=== PATIENT | male | born 1975 | race Two or more races ===

== ENCOUNTER 2017-12-29 22:05 | Emergency (ER) | payer SELFPAY ==
[2017-12-29 22:13] VITALS: BP 122/80
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
== END 2017-12-29 23:15 | disposition home or self-care (01) ==
LOC: ER 22:05
DX: M79.662 Pain in left lower leg (principal); M79.652 Pain in left thigh; R25.2 Cramp and spasm; Z82.49 Family history of ischemic heart disease and other diseases of the circulatory system
CPT/HCPCS: 99283

== ENCOUNTER 2018-02-01 02:20 | Emergency (ER) | payer OTHER ==
[2018-02-01 02:30] VITALS: BP 115/87
[2018-02-01] MEDS ORDERED: IBUPROFEN 400 MG TABLET PO ONE (02:54)
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
--- NOTE | 2018-02-01 03:48 | RADIOLOGY REPORT (SQ) ---
EXAM DESCRIPTION: XR HAND 3 OR MORE VIEWS, XR WRIST 3 OR MORE VIEWS COMPLETED DATE/TME: 02/01/2018 00:00 (accession [id number]), 02/01/2018 02:54 (accession [id number]) CLINICAL HISTORY: 42 years Male, pain COMPARISON: None. Findings: Mild posterior subluxation of the left distal ulna the distal radioulnar joint which may indicate injury/laxity of the distal left radial ulnar ligament. Bones, joints, and soft tissues of the LEFT XR HAND 3 VIEWS, XR WRIST 4 VIEWS appear otherwise intact. IMPRESSION: Mild posterior subluxation of the left distal ulna the distal radioulnar joint which may indicate injury/laxity of the distal left radial ulnar ligament.
--- NOTE | 2018-02-01 03:48 | RADIOLOGY REPORT (SQ) ---
EXAM DESCRIPTION: XR HAND 3 OR MORE VIEWS, XR WRIST 3 OR MORE VIEWS COMPLETED DATE/TME: 02/01/2018 00:00 (accession [id number]), 02/01/2018 02:54 (accession [id number]) CLINICAL HISTORY: 42 years Male, pain COMPARISON: None. Findings: Mild posterior subluxation of the left distal ulna the distal radioulnar joint which may indicate injury/laxity of the distal left radial ulnar ligament. Bones, joints, and soft tissues of the LEFT XR HAND 3 VIEWS, XR WRIST 4 VIEWS appear otherwise intact. IMPRESSION: Mild posterior subluxation of the left distal ulna the distal radioulnar joint which may indicate injury/laxity of the distal left radial ulnar ligament.
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
== END 2018-02-01 04:34 | disposition home or self-care (01) ==
LOC: ER 02:20
DX: S43.422A Sprain of left rotator cuff capsule, initial encounter (principal); S63.502A Unspecified sprain of left wrist, initial encounter; M25.512 Pain in left shoulder; Y09 Assault by unspecified means
CPT/HCPCS: 99284; 73130; 73030; 73110; J3490; L3908

== ENCOUNTER 2018-08-30 13:26 | Inpatient (IN) | payer OTHER ==
[2018-08-30] MEDS ORDERED: RINGERS SOLUTION,LACTATED 1,000 ML IV ONE (14:57)
[2018-08-30] MEDS ORDERED: ONDANSETRON HCL INJ/PF 4 MG/2 ML SDV IV ONE (14:58)
[2018-08-30] MEDS ORDERED: KETOROLAC TROMETHAMINE INJ/PF 30 MG/1 ML SDV IV ONE (14:58)
[2018-08-30 15:17] LABS: ABSOLUTE BASOPHILS # (AUTO) 0.1 10^3/uL (0.0-0.2); ABSOLUTE LYMPHOCYTES (AUTO) 1.4 10^3/uL (0.5-4.7); ABSOLUTE MONOCYTES (AUTO) 0.7 10^3/uL (0.1-1.4); BASOPHILS % (AUTO) 0.4 % (0-2); EOSINOPHILS % (AUTO) 0.1 % (0-6); HEMATOCRIT 49.9 % (37.9-51.0); HEMOGLOBIN 17.3 g/dL (13.5-17.0); LYMPHOCYTES % (AUTO) 10.7 % (13-45); MEAN CORPUSCULAR HGB CONC 34.7 g/dL (32.0-36.0); MEAN CORPUSCULAR VOLUME 89 fl (80-97); MONOCYTES % (AUTO) 5.7 % (3-13); PLATELET COUNT 255 10^3/uL (150-450); RED BLOOD COUNT 5.59 10^6/uL (4.35-5.55); RED CELL DISTRIBUTION WIDTH 12.7 % (11.5-14.0); SEGMENTED NEUTROPHILS % (AUTO) 83.1 % (42-78); TOTAL CELLS COUNTED % (AUTO) 100 %; WHITE BLOOD COUNT 13.2 10^3/uL (4.0-10.5)
[2018-08-30 15:18] LABS: AMORPHOUS SEDIMENT,URINE TRACE /HPF; APPEARANCE,URINE SLIGHTLY-CLOUDY; BILIRUBIN,URINE NEGATIVE (NEGATIVE); COLOR,URINE YELLOW; GLUCOSE, URINE 50 mg/dL (NEGATIVE); KETONES,URINE NEGATIVE (NEGATIVE); LEUKOCYTE ESTERASE,URINE NEGATIVE (NEGATIVE); NITRITE,URINE NEGATIVE (NEGATIVE); PROTEIN,URINE 100 mg/dL (NEGATIVE); URINE SPECIFIC GRAVITY 1.016; UROBILINOGEN,URINE NEGATIVE mg/dL (<2.0)
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
[2018-08-30 16:59] LABS: ALANINE AMINOTRANSFERASE 167 U/L (21-72); ALBUMIN 4.7 g/dL (3.5-5.0); ALKALINE PHOSPHATASE 54 U/L (38-126); ASPARTATE AMINO TRANSFERASE 720 U/L (17-59); BILIRUBIN,DIRECT 0.3 mg/dL (0.0-0.4); BLOOD UREA NITROGEN 51 mg/dL (7-20); CALCIUM 8.9 mg/dL (8.4-10.2); GLUCOSE 85 mg/dL (75-110); POTASSIUM 4.6 mmol/L (3.6-5.0); TOTAL PROTEIN 7.2 g/dL (6.3-8.2)
[2018-08-30 17:04] LABS: CARBON DIOXIDE 21 mmol/L (22-30); CHLORIDE 92 mmol/L (98-107); SODIUM 132.8 mmol/L (137-145)
[2018-08-30 17:07] LABS: ANION GAP 20 (5-19)
[2018-08-30] MEDS: NORMAL SALINE 1000 ML 1,000 ML IV PRN ×2 (17:28→18:30)
[2018-08-30] MEDS ORDERED: ONDANSETRON HCL INJ/PF 4 MG/2 ML SDV IV PRN (17:51)
[2018-08-30] MEDS ORDERED: ACETAMINOPHEN 325 MG TABLET PO PRN (17:51)
[2018-08-30] MEDS ORDERED: RINGERS SOLUTION,LACTATED 1,000 ML IV PRN (17:51)
--- NOTE | 2018-08-30 18:17 | PDOC H&P ---
History of Present Illness Admission Date/PCP: 08/30/2018 Patient complains of: Nausea vomiting and dehydration History of Present Illness: EMILIE CHAVEZ JR is a 43 year old male with history of hernia repair, right shoulder surgery, right bicep repair came to the emergency room with complaints of nausea and vomitings decreased urinary output since yesterday. 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 2 times may be less than 10 cc whole day. After the workout went home try to urinate less than 5 cc of brownish tinge colored urine came out and he tried to eat unable to eat even a small piece of banana and he threw back up decided to came to the emergency room for further evaluation. In the emergency room work-up was done found to have a creatinine of 4.07 given 1 L of normal saline IV bolus and found to have elevated LFTs medical consult was called for admission. Patient denies any past medical history except for the small surgical procedures and denies of naproxyn. denies fever denies chest pains cough headaches diarrhea. Complains of slight pain in the right upper quadrant. Past Medical History Cardiac Medical History: Reports: None Pulmonary Medical History: Reports: None Neurological Medical History: Reports: None Endocrine Medical History: Reports: None Malignancy Medical History: Reports: None GI Medical History: Reports: None Musculoskeltal Medical History: Reports: Other - Right shoulder repair right bicep repair Psychiatric Medical History: Reports: None Traumatic Medical History: Reports: None Past Surgical History Past Surgical History: Reports: Orthopedic Surgery - R shoulder/r bicep Social History Information Source: Patient Lives with: Family Smoking Status: Never Smoker Frequency of Alcohol Use: Occasional Hx Recreational Drug Use: No Drugs: None - Advance Directive Resuscitation Status: Full Code Family History Family History: Reviewed & Not Pertinent Parental Family History Reviewed: Yes Children Family History Reviewed: Yes Sibling(s) Family History Reviewed.: Yes Medication/Allergy Home Medications: Cyclobenzaprine HCl [Flexeril 10 mg Tablet] 10 mg PO QHS 08/30/18 Naproxen [Naprosyn] 500 mg PO QHS 08/30/18 Allergies/Adverse Reactions: No Known Allergies Allergy (Verified 08/30/18 17:58) Review of Systems Constitutional: PRESENT: fatigue, weakness. ABSENT: fever(s), headache(s) Eyes: ABSENT: visual disturbances Ears: ABSENT: hearing changes Nose, Mouth, and Throat: ABSENT: sore throat Respiratory: ABSENT: dyspnea, hemoptysis Gastrointestinal: PRESENT: abdominal pain, nausea, vomiting. ABSENT: diarrhea, dysphagia Genitourinary: PRESENT: difficulty urinating Integumentary: ABSENT: rash, wounds Neurological: ABSENT: abnormal gait, abnormal speech, confusion, dizziness, focal weakness, syncope Psychiatric: ABSENT: anxiety, depression, homidical ideation, suicidal ideation Physical Exam Vital Signs: Temp Pulse Resp BP Pulse Ox 98.1 F 61 16 134/79 H 98 08/30/18 13:27 08/30/18 13:27 08/30/18 13:27 08/30/18 13:27 08/30/18 13:27 Intake & Output 08/29/18 08/30/18 08/31/18 06:59 06:59 06:59 Weight 86.183 kg General appearance: PRESENT: no acute distress Head exam: PRESENT: atraumatic Eye exam: PRESENT: PERRLA Mouth exam: PRESENT: dry mucosa, tongue midline Neck exam: ABSENT: carotid bruit, JVD, lymphadenopathy, thyromegaly Respiratory exam: PRESENT: clear to auscultation boy. ABSENT: rales, rhonchi, wheezes Cardiovascular exam: PRESENT: RRR. ABSENT: diastolic murmur, rubs, systolic murmur GI/Abdominal exam: PRESENT: normal bowel sounds, soft. ABSENT: distended, guarding, mass, organolmegaly, rebound, tenderness Rectal exam: PRESENT: deferred Extremities exam: PRESENT: full ROM. ABSENT: calf tenderness, clubbing, pedal edema Psychiatric exam: PRESENT: appropriate affect, normal mood. ABSENT: homicidal ideation, suicidal ideation Skin exam: PRESENT: dry, intact, warm. ABSENT: cyanosis, rash Results Laboratory Results: 08/30/18 14:50 08/30/18 16:18 08/30/18 08/30/18 08/30/18 14:50 14:50 14:50 WBC 13.2 H RBC 5.59 H Hgb 17.3 H Hct 49.9 MCV 89 MCH 31.0 MCHC 34.7 RDW 12.7 Plt Count 255 Seg Neutrophils % 83.1 H Lymphocytes % 10.7 L Monocytes % 5.7 Eosinophils % 0.1 Basophils % 0.4 Absolute Neutrophils 11.0 H Absolute Lymphocytes 1.4 Absolute Monocytes 0.7 Absolute Eosinophils 0.0 Absolute Basophils 0.1 Sodium Cancelled Potassium Cancelled Chloride Cancelled Carbon Dioxide Cancelled Anion Gap Cancelled BUN Cancelled Creatinine Cancelled Est GFR ( Amer) Cancelled Est GFR (Non-Af Amer) Cancelled Glucose Cancelled Calcium Cancelled Total Bilirubin Cancelled AST Cancelled ALT Cancelled Alkaline Phosphatase Cancelled Total Protein Cancelled Albumin Cancelled Urine Color YELLOW Urine Appearance SLIGHTLY-CLOUDY Urine pH 5.0 Ur Specific [employer] 1.016 Urine Protein 100 H Urine Glucose (UA) 50 H Urine Ketones NEGATIVE Urine Blood LARGE H Urine Nitrite NEGATIVE Ur Leukocyte Esterase NEGATIVE Urine WBC (Auto) 6 Urine RBC (Auto) 22 08/30/18 08/30/18 16:18 16:18 WBC RBC Hgb Hct MCV MCH MCHC RDW Plt Count Seg Neutrophils % Lymphocytes % Monocytes % Eosinophils % Basophils % Absolute Neutrophils Absolute Lymphocytes Absolute Monocytes Absolute Eosinophils Absolute Basophils Sodium 132.8 L Cancelled Potassium 4.6 Cancelled Chloride 92 L Cancelled Carbon Dioxide 21 L Cancelled Anion Gap 20 H Cancelled BUN 51 H Cancelled Creatinine 4.09 H Cancelled Est GFR ( Amer) 19 L Cancelled Est GFR (Non-Af Amer) 16 L Cancelled Glucose 85 Cancelled Calcium 8.9 Cancelled Total Bilirubin 1.0 AST 720 H ALT 167 H Alkaline Phosphatase 54 Total Protein 7.2 Albumin 4.7 Urine Color Urine Appearance Urine pH Ur Specific [employer] Urine Protein Urine Glucose (UA) Urine Ketones Urine Blood Urine Nitrite Ur Leukocyte Esterase Urine WBC (Auto) Urine RBC (Auto) Assessment and Plan - Diagnosis (1) ANGEL (acute kidney injury) Is this a current diagnosis for this admission?: Yes Plan: 08/30/2018-patient is going to be admitted with a diagnosis of acute kidney injury. He is going to be admitted to telemetry. He received 2 L of IV fluids in the emergency room to start on a Ringer lactate at 150 cc/h. Nephrology consult was requested. GI prophylaxis DVT prophylaxis initiated. To recheck the labs tomorrow. CK is pending. Elevated LFTs are present at the time of admission ultrasound of the liver was requested. Start on a regular diet. (2) Elevated liver enzymes Is this a current diagnosis for this admission?: Yes Plan: 08/30/2018 elevated liver enzymes AST ALT may be secondary to severe dehydration. Plan to repeat the labs tomorrow and ultrasound of the liver was requested. Total bilirubin and direct bilirubin are normal. (3) Nausea & vomiting Qualifiers: Vomiting type: unspecified Vomiting Intractability: non-intractable Qualified Code(s): R11.2 - Nausea with vomiting, unspecified Is this a current diagnosis for this admission?: Yes Plan: 08/30/2018-patient came to the ER with nausea vomiting's though symptoms are resolved. He is able to drink miriam eduardo and denies any abdominal pains except for a slight discomfort in the right upper quadrant on gentle palpation. I did an IV Zofran 4 mg every 6 PRN for nausea and vomiting's. (4) Dehydration Is this a current diagnosis for this admission?: Yes Plan: 08/30/2018-patient is severely deviated and treated most likely secondary to his externus exercise in the extreme heat yesterday. Received 2 L of normal saline in the emergency room started on Ringer lactate 150 cc/h plan to recheck the labs tomorrow. - Time Time Spent with patient: 15-24 minutes Medications reviewed and adjusted accordingly: Yes Anticipated discharge: Home
[2018-08-30 18:43] LABS: CREATINE KINASE 94975 U/L (55-170)
[2018-08-30] MEDS ORDERED: ENOXAPARIN SODIUM INJ 40 MG/0.4 ML DISP.SYRIN SUBCUT SCH (19:00)
[2018-08-30 19:28] LABS: CREATINE KINASE MB 24.4 ng/mL (<4.55)
[2018-08-30 19:32] LABS: TROPONIN I 0.048 ng/mL
--- NOTE | 2018-08-30 21:10 | RADIOLOGY REPORT (SQ) ---
EXAM DESCRIPTION: US ABDOMEN COMPLETED DATE/TME: 08/30/2018 00:00 CLINICAL HISTORY: 43 years, Male, elevated lfts COMPARISON: None. TECHNIQUE: 2-D grayscale images of the abdomen were obtained. Additional Doppler was utilized. LIMITATIONS: None. FINDINGS: The pancreas is largely obscured by overlying bowel gas artifact. Visualized portions of the abdominal aorta appear normal, with measurements as follows: Proximal abdominal aorta measures 2.1 cm Mid abdominal aorta measures 1.7 cm Distal abdominal aorta measures 1.9 cm The liver demonstrates accentuation of the portal triads (starry skylar appearance). It measures 15 cm in length. The hepatic veins are patent. Antegrade flow is documented within the main portal vein. Gallbladder wall thickness measures 2 mm. Sonographic Lopez sign was negative. No gallstones. No significant intrahepatic biliary ductal dilatation is evident. Common bile duct diameter measures 3 mm. Right kidney measures 10.4 cm in length. It appears somewhat echogenic. Left kidney measures 12.8 cm in length. It appears normal in echogenicity. No hydronephrosis. Spleen measures 9.1 cm in length. IMPRESSION: Accentuation the portal triads throughout the liver parenchyma, raising the possibility of acute hepatitis. However, the liver does not appear significantly enlarged. Correlate. Echogenic right kidney, raising the possibility of medical renal disease. copyright 2010 [employer]- All Rights Reserved
[2018-08-30] MEDS: FAMOTIDINE 20 MG TABLET PO SCH (23:02)
[2018-08-30] MEDS: CYCLOBENZAPRINE HCL 10 MG TABLET PO SCH (23:02)
[2018-08-31 01:53] LABS: CREATINE KINASE MB 20.4 ng/mL (<4.55); TROPONIN I 0.036 ng/mL
[2018-08-31 07:33] LABS: ABSOLUTE MONOCYTES (AUTO) 0.6 10^3/uL (0.1-1.4); BASOPHILS % (AUTO) 0.2 % (0-2); EOSINOPHILS % (AUTO) 0.2 % (0-6); HEMATOCRIT 40.5 % (37.9-51.0); MEAN CORPUSCULAR HEMOGLOBIN 31.3 pg (27.0-33.4); MEAN CORPUSCULAR HGB CONC 35.4 g/dL (32.0-36.0); MEAN CORPUSCULAR VOLUME 89 fl (80-97); MONOCYTES % (AUTO) 7.4 % (3-13); PLATELET COUNT 160 10^3/uL (150-450); RED BLOOD COUNT 4.58 10^6/uL (4.35-5.55); RED CELL DISTRIBUTION WIDTH 12.6 % (11.5-14.0); SEGMENTED NEUTROPHILS % (AUTO) 79.2 % (42-78); TOTAL CELLS COUNTED % (AUTO) 100 %; WHITE BLOOD COUNT 7.6 10^3/uL (4.0-10.5)
[2018-08-31 07:45] LABS: ALANINE AMINOTRANSFERASE 184 U/L (21-72); ALBUMIN 3.6 g/dL (3.5-5.0); ALKALINE PHOSPHATASE 43 U/L (38-126); ANION GAP 14 (5-19); ASPARTATE AMINO TRANSFERASE 662 U/L (17-59); BILIRUBIN,DIRECT 0.3 mg/dL (0.0-0.4); BILIRUBIN,TOTAL 0.9 mg/dL (0.2-1.3); BLOOD UREA NITROGEN 65 mg/dL (7-20); CALCIUM 8.1 mg/dL (8.4-10.2); CARBON DIOXIDE 21 mmol/L (22-30); CHLORIDE 99 mmol/L (98-107); CHOLESTEROL 196.93 mg/dL (0-200); GLUCOSE 101 mg/dL (75-110); POTASSIUM 4.1 mmol/L (3.6-5.0); SODIUM 133.6 mmol/L (137-145); TOTAL PROTEIN 5.8 g/dL (6.3-8.2); TRIGLYCERIDES 150 mg/dL (<150)
--- NOTE | 2018-08-31 07:49 | EKG REPORT ---
SEVERITY:- BORDERLINE ECG - SINUS RHYTHM BORDERLINE PROLONGED QT INTERVAL : Confirmed by: Edgar Sanford MD 31-Aug-2018 07:49:02
--- NOTE | 2018-08-31 07:49 | EKG REPORT ---
SEVERITY:- ABNORMAL ECG - SINUS RHYTHM PROLONGED QT INTERVAL : Confirmed by: Edgar Sanford MD 31-Aug-2018 07:49:15
[2018-08-31 07:56] LABS: CREATINE KINASE MB 16.7 ng/mL (<4.55); DIRECT LDL 123 mg/dL (<100); TROPONIN I 0.026 ng/mL
[2018-08-31 08:42] LABS: CREATINE KINASE 78033 U/L (55-170)
[2018-08-31 08:44] LABS: HEMOGLOBIN 14.3 g/dL (13.5-17.0)
[2018-08-31] MEDS: NORMAL SALINE 1000 ML 1,000 ML IV PRN ×2 (10:45→16:36)
[2018-08-31] MEDS: ENOXAPARIN SODIUM INJ 30 MG/0.3 ML DISP.SYRIN SUBCUT SCH (10:46)
[2018-08-31] MEDS: FAMOTIDINE 20 MG TABLET PO SCH ×2 (10:46→23:52)
[2018-08-31] MEDS: ACETAMINOPHEN 325 MG TABLET PO PRN ×2 (12:38→23:51)
[2018-08-31] MEDS ORDERED: MORPHINE SULFATE 10 MG/ML INJ IV PRN (19:31)
--- NOTE | 2018-08-31 19:33 | PDOC PROGRESS REPORT ---
Subjective Progress Note for:: 08/31/18 Subjective:: EMILIE CHAVEZ JR is a 43 year old male with history of hernia repair, right shoulder surgery, right bicep repair came to the emergency room with complaints of nausea and vomitings decreased urinary output since yesterday. 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 2 times may be less than 10 cc whole day. After the workout went home try to urinate less than 5 cc of brownish tinge colored urine came out and he tried to eat unable to eat even a small piece of banana and he threw back up decided to came to the emergency room for further evaluation. In the emergency room work-up was done found to have a creatinine of 4.07 given 1 L of normal saline IV bolus and found to have elevated LFTs medical consult was called for admission. Patient denies any past medical history except for the small surgical procedures and denies of naproxyn. denies fever denies chest pains cough headaches diarrhea. Complains of slight pain in the right upper quadrant. 08/31/2018. Assumed care today. Patient complaining of mild nausea, generalized weakness and muscle soreness, eyes any fever, chills, vomiting, diarrhea, constipation or any urinary symptoms. Reason For Visit: ACUTE RENAL FAILURE Physical Exam Vital Signs: Temp Pulse Resp BP Pulse Ox 98.2 F 45 L 16 120/78 98 08/31/18 16:00 08/31/18 16:00 08/31/18 16:00 08/31/18 16:00 08/31/18 16:00 Intake & Output 08/30/18 08/31/18 09/01/18 06:59 06:59 06:59 Intake Total 3042 2508 Output Total 550 Balance 3042 1958 Weight 88.4 kg General appearance: PRESENT: no acute distress, well-developed, well-nourished Head exam: PRESENT: atraumatic, normocephalic Eye exam: PRESENT: conjunctiva pink, EOMI, PERRLA. ABSENT: scleral icterus Ear exam: PRESENT: normal external ear exam Mouth exam: PRESENT: moist, tongue midline Neck exam: ABSENT: carotid bruit, JVD, lymphadenopathy, thyromegaly Respiratory exam: PRESENT: clear to auscultation boy. ABSENT: rales, rhonchi, wheezes Cardiovascular exam: PRESENT: RRR. ABSENT: diastolic murmur, rubs, systolic murmur Pulses: PRESENT: normal dorsalis pedis pul Vascular exam: PRESENT: normal capillary refill GI/Abdominal exam: PRESENT: normal bowel sounds, soft. ABSENT: distended, guarding, mass, organolmegaly, rebound, tenderness Rectal exam: PRESENT: deferred Extremities exam: PRESENT: full ROM. ABSENT: calf tenderness, clubbing, pedal edema Musculoskeletal exam: PRESENT: tenderness - Generalized musculoskeletal tenderness. Neurological exam: PRESENT: alert, awake, oriented to person, oriented to place, oriented to time, oriented to situation, CN II-XII grossly intact. ABSENT: motor sensory deficit Psychiatric exam: PRESENT: appropriate affect, normal mood. ABSENT: homicidal ideation, suicidal ideation Skin exam: PRESENT: dry, intact, warm. ABSENT: cyanosis, rash Results Laboratory Results: 08/31/18 07:05 08/31/18 07:05 08/31/18 08/31/18 08/31/18 07:05 07:05 07:05 WBC 7.6 RBC 4.58 Hgb 14.3 D Hct 40.5 MCV 89 MCH 31.3 MCHC 35.4 RDW 12.6 Plt Count 160 Seg Neutrophils % 79.2 H Lymphocytes % 13.0 Monocytes % 7.4 Eosinophils % 0.2 Basophils % 0.2 Absolute Neutrophils 6.0 Absolute Lymphocytes 1.0 Absolute Monocytes 0.6 Absolute Eosinophils 0.0 Absolute Basophils 0.0 Sodium 133.6 L Potassium 4.1 Chloride 99 Carbon Dioxide 21 L Anion Gap 14 BUN 65 H Creatinine 5.53 H Est GFR ( Amer) 14 L Est GFR (Non-Af Amer) 11 L Glucose 101 Calcium 8.1 L Magnesium 3.7 H Total Bilirubin 0.9 AST 662 H ALT 184 H Alkaline Phosphatase 43 Total Protein 5.8 L Albumin 3.6 Triglycerides 150 Cholesterol 196.93 LDL Cholesterol Direct 123 H VLDL Cholesterol 30.0 HDL Cholesterol 45 TSH 1.40 08/30/18 08/30/18 08/30/18 16:18 18:30 18:30 Creatine Kinase 32700 H 560960 H CK-MB (CK-2) 24.40 H Troponin I 0.048 08/31/18 08/31/18 08/31/18 01:03 01:03 07:05 Creatine Kinase 44673 H 53261 H CK-MB (CK-2) 20.40 H Troponin I 0.036 08/31/18 07:05 Creatine Kinase CK-MB (CK-2) 16.70 H Troponin I 0.026 Impressions: Abdomen Ultrasound 08/30/18 00:00 IMPRESSION: Accentuation the portal triads throughout the liver parenchyma, raising the possibility of acute hepatitis. However, the liver does not appear significantly enlarged. Correlate. Echogenic right kidney, raising the possibility of medical renal disease. copyright 2010 [employer]- All Rights Reserved Assessment and Plan - Diagnosis (1) Rhabdomyolysis Qualifiers: Rhabdomyolysis type: non-traumatic Qualified Code(s): M62.82 - Rhabdomyolysis Is this a current diagnosis for this admission?: Yes Plan: Due to intense workout session at work. Stating that he had a continuous 12- hour intense workout session at work part of his training at [employer]. CK trending down from [id number] on admission. Continue IV fluids guided by volume status and vitals. Strict in and out. (2) ANGEL (acute kidney injury) Is this a current diagnosis for this admission?: Yes Plan: Nonoliguric. Worsening kidney function. No sign of volume overload. Denies any uremic symptoms except for mild nausea. 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 Continue IV fluids. Monitor volume status, electrolytes, and vitals. Continue prerenal diet. Nephrology on board. (3) Dehydration Is this a current diagnosis for this admission?: Yes Plan: Continue volume resuscitation guided by volume status and vitals. (4) Elevated liver enzymes Is this a current diagnosis for this admission?: Yes Plan: Improving. Likely due to rhabdomyolysis patient denies any history of alcohol intake, history of alcoholic hepatitis. 09/01/2018: LFTs trending down. Bilirubin and alk phos within normal limits. 08/30/2018. Abdominal ultrasound. Accentuation of the portal triads throughout the liver parenchyma, raising the possibility of acute hepatitis. However the liver does not appear significantly enlarged. LFTs for tomorrow. Will consider hepatitis work-up if does not improve. (5) Nausea & vomiting Qualifiers: Vomiting type: unspecified Vomiting Intractability: non-intractable Qualified Code(s): R11.2 - Nausea with vomiting, unspecified Is this a current diagnosis for this admission?: Yes Plan: Due to #1. Continue supportive measures. Monitor electrolytes and volume status.
--- NOTE | 2018-08-31 20:36 | PDOC CONSULTATION ---
Consultation Consult Date: 08/31/18 Provider Consulted: TANA GARG Consult reason:: ANGEL History of Present Illness Admission Date/PCP: 08/30/18 18:17 History of Present Illness: EMILIE CHAVEZ JR is a 43 year old male with history of hernia repair, right shoulder surgery, right bicep repair came to the emergency room with complaints of nausea and vomitings, decreased urinary output and brown colored urine since yesterday. 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 He was sweating a significant amount. He claims to have been drinking water and diluted Gatorade through out the day. He noticed later that night he had decreased urine out put, his body was becoming sore all over and his urine became brown. At that time he felt that he should go to the ER. In the ER labs creatinine of 4.07, BUN was elevated and CPK was over 95,000. He was given 1 L of normal saline IV bolus. Since admission he has been on normal saline at 200mL an hour. Urine output has increased and the color of the urine has improved. Ultrasound just showed the possiblity of acute hepatitis. Patient today claims that the only complaint is that he is still sore. He denies chest pain, SOB, D/C. Nausea and vomiting has just about gone away. Urine out put so far is up to 550mL for the day. Past Medical History Cardiac Medical History: Reports: None Pulmonary Medical History: Reports: None Neurological Medical History: Reports: None Endocrine Medical History: Reports: None Complications of Diabetes: Reports: None Malignancy Medical History: Reports: None GI Medical History: Reports: None Musculoskeltal Medical History: Reports: Other - Right shoulder repair right bicep repair Psychiatric Medical History: Reports: None Traumatic Medical History: Reports: None Past Surgical History Past Surgical History: Reports: Orthopedic Surgery - R shoulder/r bicep Social History Lives with: Family Smoking Status: Never Smoker Frequency of Alcohol Use: Occasional Hx Recreational Drug Use: No Drugs: None - Advance Directive Resuscitation Status: Full Code Family History Parental Family History Reviewed: Yes Children Family History Reviewed: Unknown Sibling(s) Family History Reviewed.: Unknown Medication/Allergy Home Medications: Cyclobenzaprine HCl [Flexeril 10 mg Tablet] 10 mg PO QHS 08/30/18 Naproxen [Naprosyn] 500 mg PO QHS 08/30/18 Allergies/Adverse Reactions: No Known Allergies Allergy (Verified 08/30/18 17:58) Review of Systems Constitutional: PRESENT: fatigue, weakness. ABSENT: anorexia, chills, fever(s) Eyes: ABSENT: visual disturbances Cardiovascular: ABSENT: chest pain, dyspnea on exertion, edema, orthropnea, pal pitations Respiratory: ABSENT: cough, dyspnea, sputum Gastrointestinal: PRESENT: abdominal pain - -soreness, nausea. ABSENT: constipation, diarrhea, vomiting Genitourinary: PRESENT: difficulty urinating - -when he first came in. ABSENT: dysuria Musculoskeletal: PRESENT: muscle weakness. ABSENT: joint swelling Neurological: PRESENT: weakness. ABSENT: confusion, dizziness, numbness Psychiatric: ABSENT: anxiety, depression Physical Exam Vital Signs: Temp Pulse Resp BP Pulse Ox 97.9 F 47 L 16 107/56 L 99 08/31/18 08:01 08/31/18 14:00 08/31/18 08:01 08/31/18 08:01 08/31/18 08:01 Intake & Output 08/30/18 08/31/18 09/01/18 06:59 06:59 06:59 Intake Total 3042 958 Balance 3042 958 Weight 88.4 kg General appearance: PRESENT: no acute distress, well-developed, well-nourished Mouth exam: PRESENT: dry mucosa, neck supple Neck exam: ABSENT: JVD, tracheal deviation Respiratory exam: PRESENT: clear to auscultation boy. ABSENT: crackles, rales, rhonchi, wheezes Cardiovascular exam: PRESENT: +S1, +S2. ABSENT: RRR GI/Abdominal exam: PRESENT: soft, tenderness - -sore. ABSENT: ascites, d istended, guarding, mass Extremities exam: PRESENT: tenderness. ABSENT: +1 edema, +2 edema Musculoskeletal exam: PRESENT: normal inspection, tenderness Neurological exam: PRESENT: alert, awake, oriented to person, oriented to place, oriented to time, oriented to situation Skin exam: PRESENT: dry, intact, warm, other - -bruises on the legs Results Laboratory Results: 08/31/18 07:05 08/31/18 07:05 08/30/18 08/30/18 08/31/18 16:18 16:18 07:05 WBC 7.6 RBC 4.58 Hgb 14.3 D Hct 40.5 MCV 89 MCH 31.3 MCHC 35.4 RDW 12.6 Plt Count 160 Seg Neutrophils % 79.2 H Lymphocytes % 13.0 Monocytes % 7.4 Eosinophils % 0.2 Basophils % 0.2 Absolute Neutrophils 6.0 Absolute Lymphocytes 1.0 Absolute Monocytes 0.6 Absolute Eosinophils 0.0 Absolute Basophils 0.0 Sodium 132.8 L Cancelled Potassium 4.6 Cancelled Chloride 92 L Cancelled Carbon Dioxide 21 L Cancelled Anion Gap 20 H Cancelled BUN 51 H Cancelled Creatinine 4.09 H Cancelled Est GFR ( Amer) 19 L Cancelled Est GFR (Non-Af Amer) 16 L Cancelled Glucose 85 Cancelled Calcium 8.9 Cancelled Magnesium Total Bilirubin 1.0 AST 720 H ALT 167 H Alkaline Phosphatase 54 Total Protein 7.2 Albumin 4.7 Triglycerides Cholesterol LDL Cholesterol Direct VLDL Cholesterol HDL Cholesterol TSH 08/31/18 08/31/18 07:05 07:05 WBC RBC Hgb Hct MCV MCH MCHC RDW Plt Count Seg Neutrophils % Lymphocytes % Monocytes % Eosinophils % Basophils % Absolute Neutrophils Absolute Lymphocytes Absolute Monocytes Absolute Eosinophils Absolute Basophils Sodium 133.6 L Potassium 4.1 Chloride 99 Carbon Dioxide 21 L Anion Gap 14 BUN 65 H Creatinine 5.53 H Est GFR ( Amer) 14 L Est GFR (Non-Af Amer) 11 L Glucose 101 Calcium 8.1 L Magnesium 3.7 H Total Bilirubin 0.9 AST 662 H ALT 184 H Alkaline Phosphatase 43 Total Protein 5.8 L Albumin 3.6 Triglycerides 150 Cholesterol 196.93 LDL Cholesterol Direct 123 H VLDL Cholesterol 30.0 HDL Cholesterol 45 TSH 1.40 08/30/18 08/30/18 08/30/18 16:18 18:30 18:30 Creatine Kinase 45746 H 036444 H CK-MB (CK-2) 24.40 H Troponin I 0.048 08/31/18 08/31/18 08/31/18 01:03 01:03 07:05 Creatine Kinase 12649 H 10844 H CK-MB (CK-2) 20.40 H Troponin I 0.036 08/31/18 07:05 Creatine Kinase CK-MB (CK-2) 16.70 H Troponin I 0.026 Impressions: Abdomen Ultrasound 08/30/18 00:00 IMPRESSION: Accentuation the portal triads throughout the liver parenchyma, raising the possibility of acute hepatitis. However, the liver does not appear significantly enlarged. Correlate. Echogenic right kidney, raising the possibility of medical renal disease. copyright 2010 [employer]- All Rights Reserved Assessment & Plan - Diagnosis (1) ANGEL (acute kidney injury) Is this a current diagnosis for this admission?: Yes Plan: nonoliguric, looks to be due to rhabdomyolysis and dehydration. Continue NS at 200mL per an hour. Strict Is and Os. No current indication for [employer]. Will look to recheck the BMP this afternoon. (2) Rhabdomyolysis Qualifiers: Rhabdomyolysis type: non-traumatic Qualified Code(s): M62.82 - Rhabdomyolysis Is this a current diagnosis for this admission?: Yes Plan: Continue on normal saline at 200mL per a hour. Close monitoring of labs, Is and Os (3) Hypocalcemia Plan: will look to start calcium supplemnt (4) Dehydration Is this a current diagnosis for this admission?: Yes Plan: continue normal saline at 200mL per an hour (5) Elevated liver enzymes Is this a current diagnosis for this admission?: Yes Plan: Likely due to dehydration, continue to monitor as he is rehydrated (6) Nausea & vomiting Qualifiers: Vomiting type: unspecified Vomiting Intractability: non-intractable Qualified Code(s): R11.2 - Nausea with vomiting, unspecified Is this a current diagnosis for this admission?: Yes Plan: looks to have almost resolved
[2018-08-31 21:48] LABS: ANION GAP 13 (5-19); BLOOD UREA NITROGEN 68 mg/dL (7-20); CALCIUM 7.8 mg/dL (8.4-10.2); CARBON DIOXIDE 22 mmol/L (22-30); CHLORIDE 100 mmol/L (98-107); GLUCOSE 95 mg/dL (75-110); POTASSIUM 3.8 mmol/L (3.6-5.0); SODIUM 134.6 mmol/L (137-145)
[2018-08-31] MEDS: TRAZODONE HCL 50 MG TABLET PO PRN (23:51)
[2018-08-31] MEDS: CYCLOBENZAPRINE HCL 10 MG TABLET PO SCH (23:52)
[2018-09-01] MEDS: CALCIUM CARBONATE 500 MG TABLET PO SCH ×2 (03:04→10:15)
[2018-09-01 05:52] LABS: ABSOLUTE LYMPHOCYTES (AUTO) 0.9 10^3/uL (0.5-4.7); ABSOLUTE MONOCYTES (AUTO) 0.5 10^3/uL (0.1-1.4); ABSOLUTE NEUT (AUTO) 4.1 10^3/uL (1.7-8.2); BASOPHILS % (AUTO) 0.4 % (0-2); EOSINOPHILS % (AUTO) 0.4 % (0-6); HEMATOCRIT 36.4 % (37.9-51.0); HEMOGLOBIN 12.7 g/dL (13.5-17.0); LYMPHOCYTES % (AUTO) 16.1 % (13-45); MEAN CORPUSCULAR HEMOGLOBIN 31.1 pg (27.0-33.4); MEAN CORPUSCULAR VOLUME 89 fl (80-97); MONOCYTES % (AUTO) 8.7 % (3-13); PLATELET COUNT 117 10^3/uL (150-450); RED BLOOD COUNT 4.09 10^6/uL (4.35-5.55); RED CELL DISTRIBUTION WIDTH 12.8 % (11.5-14.0); SEGMENTED NEUTROPHILS % (AUTO) 74.4 % (42-78); TOTAL CELLS COUNTED % (AUTO) 100 %; WHITE BLOOD COUNT 5.5 10^3/uL (4.0-10.5)
[2018-09-01 06:14] LABS: ALANINE AMINOTRANSFERASE 176 U/L (21-72); ALBUMIN 3.1 g/dL (3.5-5.0); ALKALINE PHOSPHATASE 37 U/L (38-126); ANION GAP 15 (5-19); ASPARTATE AMINO TRANSFERASE 432 U/L (17-59); BILIRUBIN,DIRECT 0.5 mg/dL (0.0-0.4); BILIRUBIN,TOTAL 0.8 mg/dL (0.2-1.3); BLOOD UREA NITROGEN 67 mg/dL (7-20); CALCIUM 7.6 mg/dL (8.4-10.2); CARBON DIOXIDE 18 mmol/L (22-30); CHLORIDE 101 mmol/L (98-107); GLUCOSE 89 mg/dL (75-110); POTASSIUM 3.9 mmol/L (3.6-5.0); SODIUM 133.5 mmol/L (137-145); TOTAL PROTEIN 5.3 g/dL (6.3-8.2)
[2018-09-01 07:29] LABS: CREATINE KINASE 43798 U/L (55-170)
[2018-09-01] MEDS: ENOXAPARIN SODIUM INJ 30 MG/0.3 ML DISP.SYRIN SUBCUT SCH (10:04)
[2018-09-01] MEDS: FAMOTIDINE 20 MG TABLET PO SCH ×2 (10:04→21:52)
--- NOTE | 2018-09-01 12:00 | PDOC PROGRESS REPORT ---
Subjective Progress Note for:: 09/01/18 Subjective:: Patient continues to be sore on his muscles. He has some mild nausea and complains of some lower back pain. His urine color is now light yellow. He is drinking fluids orally but does not have much appetite and has been eating well. He continues to be on IV fluids and so far since about 3 PM yesterday he made about 1550 mL of urine. Reason For Visit: ACUTE RENAL FAILURE Physical Exam Vital Signs: Temp Pulse Resp BP Pulse Ox 98.5 F 50 L 16 131/73 H 100 09/01/18 07:49 09/01/18 07:49 09/01/18 07:49 09/01/18 07:49 09/01/18 07:49 Intake & Output 08/31/18 09/01/18 09/02/18 06:59 06:59 06:59 Intake Total 3042 4218 Output Total 550 Balance 3042 3668 Weight 88.4 kg 92.9 kg Exam: General appearance: PRESENT: no acute distress, cooperative, well-developed, well-nourished Head exam: PRESENT: atraumatic, normocephalic Eye exam: PRESENT: conjunctiva pink, PERRLA. ABSENT: scleral icterus Neck exam: ABSENT: JVD Respiratory exam: PRESENT: Normal breath sounds. ABSENT: crackles, rales, rhonchi, unlabored, wheezes Cardiovascular exam: PRESENT: Regular rate rhythm -+S1, +S2. ABSENT: diastolic murmur, systolic murmur GI/Abdominal exam: PRESENT: normal bowel sounds, soft. ABSENT: guarding, mass, tenderness Extremities exam: ABSENT: No edema Neurological exam: PRESENT: alert, awake, oriented to person, place and time. Skin exam: PRESENT: dry, warm, Cardiovascular exam: PRESENT: +S1, +S2. ABSENT: RRR GI/Abdominal exam: PRESENT: soft, tenderness - -sore. ABSENT: ascites, distended, guarding, mass Results Laboratory Results: 09/01/18 04:21 09/01/18 04:21 08/31/18 09/01/18 09/01/18 21:13 04:21 04:21 WBC 5.5 RBC 4.09 L Hgb 12.7 L Hct 36.4 L MCV 89 MCH 31.1 MCHC 35.0 RDW 12.8 Plt Count 117 L Seg Neutrophils % 74.4 Lymphocytes % 16.1 Monocytes % 8.7 Eosinophils % 0.4 Basophils % 0.4 Absolute Neutrophils 4.1 Absolute Lymphocytes 0.9 Absolute Monocytes 0.5 Absolute Eosinophils 0.0 Absolute Basophils 0.0 Sodium 134.6 L 133.5 L Potassium 3.8 3.9 Chloride 100 101 Carbon Dioxide 22 18 L Anion Gap 13 15 BUN 68 H 67 H Creatinine 6.80 H 7.53 H Est GFR ( Amer) 11 L 10 L Est GFR (Non-Af Amer) 9 L 8 L Glucose 95 89 Calcium 7.8 L 7.6 L Magnesium 3.3 H Total Bilirubin 0.8 AST 432 H ALT 176 H Alkaline Phosphatase 37 L Total Protein 5.3 L Albumin 3.1 L 08/30/18 08/30/18 08/30/18 16:18 18:30 18:30 Creatine Kinase 53743 H 440846 H CK-MB (CK-2) 24.40 H Troponin I 0.048 08/31/18 08/31/18 08/31/18 01:03 01:03 07:05 Creatine Kinase 24818 H 09580 H CK-MB (CK-2) 20.40 H Troponin I 0.036 08/31/18 09/01/18 07:05 04:21 Creatine Kinase 59880 H CK-MB (CK-2) 16.70 H Troponin I 0.026 Impressions: Abdomen Ultrasound 08/30/18 00:00 IMPRESSION: Accentuation the portal triads throughout the liver parenchyma, raising the possibility of acute hepatitis. However, the liver does not appear significantly enlarged. Correlate. Echogenic right kidney, raising the possibility of medical renal disease. 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 Patient is nonoliguric. However patient's kidney function is still getting worse and not better. I spoke to the patient today that if his kidney function continues to get worse we might need to do acute renal replacement therapy to help for solute clearance. Discussed the procedure risks and benefits of renal replacement ther apy with the patient. Patient indicated that he would agree to proceed if necessary. So I am going to repeat his kidney function sometime this evening and determine if he would need any renal replacement therapy tomorrow. Currently the he does not have any symptoms of fluid overload nor overt uremia. (2) Rhabdomyolysis Qualifiers: Rhabdomyolysis type: non-traumatic Qualified Code(s): M62.82 - Rhabdomyolysis Is this a current diagnosis for this admission?: Yes Plan: CPK is progressively decreasing with IV fluid hydration. Continue the same. (3) Dehydration Is this a current diagnosis for this admission?: Yes Plan: Continue IV fluid hydration. (4) Elevated liver enzymes Is this a current diagnosis for this admission?: Yes Plan: Ultrasound revealed possibility of acute hepatitis. Defer to hospitalist. (5) Hypocalcemia Is this a current diagnosis for this admission?: Yes Plan: Corrected calcium today is 8.32 which is normal. May continue calcium sup plements. (6) Nausea & vomiting Qualifiers: Vomiting type: unspecified Vomiting Intractability: non-intractable Qu alified Code(s): R11.2 - Nausea with vomiting, unspecified Is this a current diagnosis for this admission?: Yes Plan: Mild. (8) Hyponatremia Is this a current diagnosis for this admission?: Yes Plan: Mild, monitor for now. (9) Metabolic acidosis Is this a current diagnosis for this admission?: Yes Plan: Due to ANGEL and IV hydration. - Time Time with patient: Greater than 35 minutes
--- NOTE | 2018-09-01 15:27 | PDOC PROGRESS REPORT ---
Subjective Progress Note for:: 09/01/18 Subjective:: EMILIE CHAVEZ JR is a 43 year old male with history of hernia repair, right shoulder surgery, right bicep repair came to the emergency room with complaints of nausea and vomitings decreased urinary output since yesterday. 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 2 times may be less than 10 cc whole day. After the workout went home try to urinate less than 5 cc of brownish tinge colored urine came out and he tried to eat unable to eat even a small piece of banana and he threw back up decided to came to the emergency room for further evaluation. In the emergency room work-up was done found to have a creatinine of 4.07 given 1 L of normal saline IV bolus and found to have elevated LFTs medical consult was called for admission. Patient denies any past medical history except for the small surgical procedures and denies of naproxyn. denies fever denies chest pains cough headaches diarrhea. Complains of slight pain in the right upper quadrant. 09/01/2018. Complaining of generalized soreness was no complaint patient is having adequate urinary output, denies any fever, chills, nausea, vomiting, diarrhea, constipation or any urinary symptoms. WBC 5.5, hemoglobin 12.7, platelets 117, sodium 133.5, bicarb 18, creatinine 7.53 up from 4.09 on admission, corrected calcium 8.3, AST 432 down from 720 on admission, ALT 176 up [place] 167 [place] [address] down from 770247 Reason For Visit: ACUTE RENAL FAILURE Physical Exam Vital Signs: Temp Pulse Resp BP Pulse Ox 97.8 F 51 L 16 135/80 H 100 09/01/18 10:54 09/01/18 10:54 09/01/18 10:54 09/01/18 10:54 09/01/18 10:54 Intake & Output 08/31/18 09/01/18 09/02/18 06:59 06:59 06:59 Intake Total 3042 4218 Output Total 550 Balance 3042 3668 Weight 88.4 kg 92.9 kg General appearance: PRESENT: no acute distress, well-developed, well-nourished Head exam: PRESENT: atraumatic, normocephalic Eye exam: PRESENT: conjunctiva pink, EOMI, PERRLA. ABSENT: scleral icterus Ear exam: PRESENT: normal external ear exam Mouth exam: PRESENT: moist, tongue midline Neck exam: ABSENT: carotid bruit, JVD, lymphadenopathy, thyromegaly Respiratory exam: PRESENT: clear to auscultation boy. ABSENT: rales, rhonchi, wheezes Cardiovascular exam: PRESENT: RRR. ABSENT: diastolic murmur, rubs, systolic murmur Pulses: PRESENT: normal dorsalis pedis pul Vascular exam: PRESENT: normal capillary refill GI/Abdominal exam: PRESENT: normal bowel sounds, soft. ABSENT: distended, guarding, mass, organolmegaly, rebound, tenderness Rectal exam: PRESENT: deferred Extremities exam: PRESENT: full ROM. ABSENT: calf tenderness, clubbing, pedal edema Neurological exam: PRESENT: alert, awake, oriented to person, oriented to place, oriented to time, oriented to situation, CN II-XII grossly intact. ABSENT: motor sensory deficit Psychiatric exam: PRESENT: appropriate affect, normal mood. ABSENT: homicidal ideation, suicidal ideation Skin exam: PRESENT: dry, intact, warm. ABSENT: cyanosis, rash Results Laboratory Results: 09/01/18 04:21 09/01/18 04:21 08/31/18 09/01/18 09/01/18 21:13 04:21 04:21 WBC 5.5 RBC 4.09 L Hgb 12.7 L Hct 36.4 L MCV 89 MCH 31.1 MCHC 35.0 RDW 12.8 Plt Count 117 L Seg Neutrophils % 74.4 Lymphocytes % 16.1 Monocytes % 8.7 Eosinophils % 0.4 Basophils % 0.4 Absolute Neutrophils 4.1 Absolute Lymphocytes 0.9 Absolute Monocytes 0.5 Absolute Eosinophils 0.0 Absolute Basophils 0.0 Sodium 134.6 L 133.5 L Potassium 3.8 3.9 Chloride 100 101 Carbon Dioxide 22 18 L Anion Gap 13 15 BUN 68 H 67 H Creatinine 6.80 H 7.53 H Est GFR ( Amer) 11 L 10 L Est GFR (Non-Af Amer) 9 L 8 L Glucose 95 89 Calcium 7.8 L 7.6 L Magnesium 3.3 H Total Bilirubin 0.8 AST 432 H ALT 176 H Alkaline Phosphatase 37 L Total Protein 5.3 L Albumin 3.1 L 08/30/18 08/30/18 08/30/18 16:18 18:30 18:30 Creatine Kinase 24178 H 917262 H CK-MB (CK-2) 24.40 H Troponin I 0.048 08/31/18 08/31/18 08/31/18 01:03 01:03 07:05 Creatine Kinase 61596 H 46553 H CK-MB (CK-2) 20.40 H Troponin I 0.036 08/31/18 09/01/18 07:05 04:21 Creatine Kinase 28258 H CK-MB (CK-2) 16.70 H Troponin I 0.026 Impressions: Abdomen Ultrasound 08/30/18 00:00 IMPRESSION: Accentuation the portal triads throughout the liver parenchyma, raising the possibility of acute hepatitis. However, the liver does not appear significantly enlarged. Correlate. Echogenic right kidney, raising the possibility of medical renal disease. copyright 2010 [employer]- All Rights Reserved Assessment and Plan - Diagnosis (1) Rhabdomyolysis Qualifiers: Rhabdomyolysis type: non-traumatic Qualified Code(s): M62.82 - Rhabdomyolysis Is this a current diagnosis for this admission?: Yes Plan: Due to intense workout session at work. Stating that he had a continuous 12- hour intense workout session at [place] [employer] [place] [address] trending down from 054762 on admission. Continue IV fluids added by volume status and vitals. Strict in and out. (2) ANGEL (acute kidney injury) Is this a current diagnosis for this admission?: Yes Plan: Nonoliguric. Worsening kidney function. No sign of volume overload. Denies any uremic symptoms except for mild nausea. 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 09/01/2018: Sodium 133.5, bicarb 18, creatinine 7.53 up from 4.09 on admission, corrected calcium 8.3 , [place] [address] down from 906411 Continue IV fluids. Monitor volume status, electrolytes, and vitals. Continue prerenal diet. Nephrology on board. LAB ASST will be initiated if kidney function does not improve. (3) Elevated liver enzymes Is this a current diagnosis for this admission?: Yes Plan: Improving. Likely due to rhabdomyolysis patient denies any history of alcohol intake, history of alcoholic hepatitis. 09/01/2018: AST 432 down from 720 on admission, ALT 176 up from 167 from admission. Bilirubin and alk phos within normal limits. 08/30/2018. Abdominal ultrasound. Accentuation of the portal triads throughout the liver parenchyma, raising the possibility of acute hepatitis. However the liver does not appear significantly enlarged. LFTs for tomorrow. Will consider hepatitis work-up if does not improve. (4) Nausea & vomiting Qualifiers: Vomiting type: unspecified Vomiting Intractability: non-intractable Qualified Code(s): R11.2 - Nausea with vomiting, unspecified Is this a current diagnosis for this admission?: Yes Plan: Improving. Most likely due to ANGEL and rhabdomyolysis. Continue supportive measures. Electrolytes and replace as needed. (5) Hypocalcemia Is this a current diagnosis for this admission?: Yes Plan: Likely due to ANGEL and liver injury due to rhabdomyolysis. Corrected calcium 8.3. Continue calcium supplement. CMP tomorrow. (6) Metabolic acidosis Is this a current diagnosis for this admission?: Yes Plan: Most likely due to ANGEL caused by rhabdomyolysis. 09/01/2018: bicarb 18,[place] [address] down from 102866. Continue treatment for the underlying causes.
[2018-09-01] MEDS: NORMAL SALINE 1000 ML 1,000 ML IV PRN ×2 (17:53→22:40)
[2018-09-01 19:54] LABS: ANION GAP 16 (5-19); BLOOD UREA NITROGEN 69 mg/dL (7-20); CARBON DIOXIDE 17 mmol/L (22-30); CHLORIDE 103 mmol/L (98-107); GLUCOSE 87 mg/dL (75-110); POTASSIUM 3.9 mmol/L (3.6-5.0); SODIUM 135.5 mmol/L (137-145)
[2018-09-01] MEDS: CYCLOBENZAPRINE HCL 10 MG TABLET PO SCH (21:52)
[2018-09-01] MEDS: TRAZODONE HCL 50 MG TABLET PO PRN (21:52)
[2018-09-02] MEDS: NORMAL SALINE 1000 ML 1,000 ML IV PRN ×4 (02:43→21:27)
[2018-09-02 05:41] LABS: ABSOLUTE LYMPHOCYTES (AUTO) 1.1 10^3/uL (0.5-4.7); ABSOLUTE MONOCYTES (AUTO) 0.5 10^3/uL (0.1-1.4); ABSOLUTE NEUT (AUTO) 3.8 10^3/uL (1.7-8.2); BASOPHILS % (AUTO) 0.6 % (0-2); EOSINOPHILS % (AUTO) 0.9 % (0-6); HEMOGLOBIN 12.1 g/dL (13.5-17.0); LYMPHOCYTES % (AUTO) 20.3 % (13-45); MEAN CORPUSCULAR HEMOGLOBIN 31.4 pg (27.0-33.4); MEAN CORPUSCULAR HGB CONC 35.4 g/dL (32.0-36.0); MEAN CORPUSCULAR VOLUME 88 fl (80-97); MONOCYTES % (AUTO) 8.7 % (3-13); PLATELET COUNT 117 10^3/uL (150-450); RED BLOOD COUNT 3.84 10^6/uL (4.35-5.55); RED CELL DISTRIBUTION WIDTH 12.7 % (11.5-14.0); SEGMENTED NEUTROPHILS % (AUTO) 69.5 % (42-78); TOTAL CELLS COUNTED % (AUTO) 100 %; WHITE BLOOD COUNT 5.4 10^3/uL (4.0-10.5)
[2018-09-02 05:49] LABS: ALANINE AMINOTRANSFERASE 172 U/L (21-72); ALBUMIN 2.8 g/dL (3.5-5.0); ALKALINE PHOSPHATASE 37 U/L (38-126); ANION GAP 11 (5-19); ASPARTATE AMINO TRANSFERASE 320 U/L (17-59); BILIRUBIN,DIRECT 0.3 mg/dL (0.0-0.4); BILIRUBIN,TOTAL 0.8 mg/dL (0.2-1.3); BLOOD UREA NITROGEN 66 mg/dL (7-20); CALCIUM 7.5 mg/dL (8.4-10.2); CARBON DIOXIDE 16 mmol/L (22-30); CHLORIDE 109 mmol/L (98-107); GLUCOSE 91 mg/dL (75-110); POTASSIUM 4.2 mmol/L (3.6-5.0); SODIUM 136.3 mmol/L (137-145); TOTAL PROTEIN 5.1 g/dL (6.3-8.2)
[2018-09-02 06:04] LABS: CREATINE KINASE 30234 U/L (55-170)
[2018-09-02] MEDS ORDERED: LIDOCAINE 1% INJ-PF (10 MG/ML) 30 ML SDV ONE (07:49)
--- NOTE | 2018-09-02 09:10 | PDOC CONSULTATION ---
Consultation Consult Date: 09/02/18 Provider Consulted: JOCELINE VILLALOBOS Consult reason:: need HD catheter History of Present Illness Admission Date/PCP: 08/30/18 18:17 History of Present Illness: EMILIE CHAVEZ JR is a 43 year old male, healthy, in lui of [facility] HD cathetrer for hemodyalisis due to rabdomyolysis. Past Medical History Cardiac Medical History: Reports: None Pulmonary Medical History: Reports: None Neurological Medical History: Reports: None Endocrine Medical History: Reports: None Malignancy Medical History: Reports: None GI Medical History: Reports: None Musculoskeltal Medical History: Reports: Other - Right shoulder repair right bicep repair Psychiatric Medical History: Reports: None Traumatic Medical History: Reports: None Past Surgical History Past Surgical History: Reports: Orthopedic Surgery - R shoulder/r bicep Social History Lives with: Family Smoking Status: Never Smoker Frequency of Alcohol Use: Occasional Hx Recreational Drug Use: No Drugs: None - Advance Directive Resuscitation Status: Full Code Family History Family History: Reviewed & Not Pertinent Parental Family History Reviewed: No Children Family History Reviewed: No Sibling(s) Family History Reviewed.: No Medication/Allergy Home Medications: Cyclobenzaprine HCl [Flexeril 10 mg Tablet] 10 mg PO QHS 08/30/18 Naproxen [Naprosyn] 500 mg PO QHS 08/30/18 Allergies/Adverse Reactions: No Known Allergies Allergy (Verified 08/30/18 17:58) Physical Exam Vital Signs: Temp Pulse Resp BP Pulse Ox 98.1 F 62 14 126/80 H 99 09/01/18 19:43 09/02/18 02:00 09/01/18 19:43 09/01/18 19:43 09/01/18 19:43 Intake & Output 09/01/18 09/02/18 09/03/18 06:59 06:59 06:59 Intake Total 4218 2200 Output Total 550 1020 Balance 3668 1180 Weight 92.9 kg 97.5 kg General appearance: PRESENT: no acute distress, well-developed, well-nourished Mouth exam: PRESENT: neck supple Neck exam: PRESENT: full ROM Respiratory exam: PRESENT: clear to auscultation boy Cardiovascular exam: PRESENT: RRR GI/Abdominal exam: PRESENT: soft Neurological exam: PRESENT: alert, awake Psychiatric exam: PRESENT: appropriate affect Skin exam: PRESENT: warm Results Laboratory Results: 09/02/18 05:12 09/02/18 05:12 09/01/18 09/02/18 09/02/18 19:16 05:12 05:12 WBC 5.4 RBC 3.84 L Hgb 12.1 L Hct 34.0 L MCV 88 MCH 31.4 MCHC 35.4 RDW 12.7 Plt Count 117 L Seg Neutrophils % 69.5 Lymphocytes % 20.3 Monocytes % 8.7 Eosinophils % 0.9 Basophils % 0.6 Absolute Neutrophils 3.8 Absolute Lymphocytes 1.1 Absolute Monocytes 0.5 Absolute Eosinophils 0.0 Absolute Basophils 0.0 Sodium 135.5 L 136.3 L Potassium 3.9 4.2 Chloride 103 109 H Carbon Dioxide 17 L 16 L Anion Gap 16 11 BUN 69 H 66 H Creatinine 7.98 H 8.11 H Est GFR ( Amer) 9 L 9 L Est GFR (Non-Af Amer) 7 L 7 L Glucose 87 91 Calcium 8.0 L 7.5 L Magnesium 2.7 H Total Bilirubin 0.8 AST 320 H ALT 172 H Alkaline Phosphatase 37 L Total Protein 5.1 L Albumin 2.8 L 08/30/18 08/30/18 08/30/18 16:18 18:30 18:30 Creatine Kinase 16788 H 772578 H CK-MB (CK-2) 24.40 H Troponin I 0.048 08/31/18 08/31/18 08/31/18 01:03 01:03 07:05 Creatine Kinase 04585 H 49751 H CK-MB (CK-2) 20.40 H Troponin I 0.036 08/31/18 09/01/18 09/02/18 07:05 04:21 05:12 Creatine Kinase 68013 H 82887 H CK-MB (CK-2) 16.70 H Troponin I 0.026 Impressions: Abdomen Ultrasound 08/30/18 00:00 IMPRESSION: Accentuation the portal triads throughout the liver parenchyma, raising the possibility of acute hepatitis. However, the liver does not appear significantly enlarged. Correlate. Echogenic right kidney, raising the possibility of medical renal disease. copyright 2010 [employer]- All Rights Reserved Assessment & Plan - Diagnosis (1) Need for intravenous access Is this a current diagnosis for this admission?: Yes - Plan Summary Plan Summary: A/ Rabdomyolysis with worsening creatinine Patient in need of HD cathter, I have been requested to insert a groin line P/ Plan placement of right femoral vein HD catheter under local. Procedure, risks, benefits, complications have been discussed with the patient, he understands, and decides to proceed
--- NOTE | 2018-09-02 09:14 | Operative Report ---
Nonrecallable Operative Report DATE OF SURGERY: 09/02/18 PREOPERATIVE DIAGNOSIS: Need HD catheter POSTOPERATIVE DIAGNOSIS: same OPERATION: placement of right femoral vein HD catheter SURGEON: JOCELINE VILLALOBOS ANESTHESIA: Other - 20 mL 1% lidocaine TISSUE REMOVED OR ALTERED: n/a COMPLICATIONS: none ESTIMATED BLOOD LOSS: 2 mL INTRAOPERATIVE FINDINGS: as above PROCEDURE: see dictation
[2018-09-02] MEDS: FAMOTIDINE 20 MG TABLET PO SCH ×2 (10:04→21:27)
[2018-09-02] MEDS: CALCIUM CARBONATE 500 MG TABLET PO SCH (10:04)
[2018-09-02] MEDS ORDERED: NORMAL SALINE 1000 ML 1,000 ML IV PRN (10:42)
--- NOTE | 2018-09-02 13:31 | PDOC PROGRESS REPORT ---
Subjective Progress Note for:: 09/02/18 Subjective:: EMILIE CHAVEZ JR is a 43 year old male with history of hernia repair, right shoulder surgery, right bicep repair came to the emergency room with complaints of nausea and vomitings decreased urinary output since yesterday. 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 2 times may be less than 10 cc whole day. After the workout went home try to urinate less than 5 cc of brownish tinge colored urine came out and he tried to eat unable to eat even a small piece of banana and he threw back up decided to came to the emergency room for further evaluation. In the emergency room work-up was done found to have a creatinine of 4.07 given 1 L of normal saline IV bolus and found to have elevated LFTs medical consult was called for admission. Patient denies any past medical history except for the small surgical procedures and denies of naproxyn. denies fever denies chest pains cough headaches diarrhea. Complains of slight pain in the right upper quadrant. 09/02/2018. No acute events overnight. Patient still complaining of generalized soreness, mild nausea, denies any vomiting, denies any uremic symptoms, p.o. tolerant, having normal bowel and bladder movements. Denies any decrease in her urine output. Unfortunately his creatinine is increasing and he is becoming more acidotic nephrology has started him on SUPERVISOR FUSING ROOM today. Denies any fever, chest pain, shortness of breath, chills, vomiting, abdominal pain or any urinary symptoms. WBC 5.4, hemoglobin 12.1, platelets 117, sodium 136, bicarb 16, creatinine 8.11, 7.5, albumin 2.8. AST 320, [place] 172[place] [address] Reason For Visit: ACUTE RENAL FAILURE Physical Exam Vital Signs: Temp Pulse Resp BP Pulse Ox 98.6 F 52 L 20 118/69 97 09/02/18 08:00 09/02/18 08:00 09/02/18 08:00 09/02/18 08:00 09/02/18 08:00 Intake & Output 09/01/18 09/02/18 09/03/18 06:59 06:59 06:59 Intake Total 4218 3200 Output Total 550 1020 Balance 3668 2180 Weight 92.9 kg 97.5 kg General appearance: PRESENT: no acute distress, well-developed, well-nourished Head exam: PRESENT: atraumatic, normocephalic Eye exam: PRESENT: conjunctiva pink, EOMI, PERRLA. ABSENT: scleral icterus Ear exam: PRESENT: normal external ear exam Mouth exam: PRESENT: moist, tongue midline Neck exam: ABSENT: carotid bruit, JVD, lymphadenopathy, thyromegaly Respiratory exam: PRESENT: clear to auscultation boy. ABSENT: rales, rhonchi, wheezes Cardiovascular exam: PRESENT: RRR. ABSENT: diastolic murmur, rubs, systolic murmur Pulses: PRESENT: normal dorsalis pedis pul Vascular exam: PRESENT: normal capillary refill GI/Abdominal exam: PRESENT: normal bowel sounds, soft. ABSENT: distended, guarding, mass, organolmegaly, rebound, tenderness Rectal exam: PRESENT: deferred Extremities exam: PRESENT: full ROM. ABSENT: calf tenderness, clubbing, pedal edema Neurological exam: PRESENT: alert, awake, oriented to person, oriented to place, oriented to time, oriented to situation, CN II-XII grossly intact. ABSENT: motor sensory deficit Psychiatric exam: PRESENT: appropriate affect, normal mood. ABSENT: homicidal ideation, suicidal ideation Skin exam: PRESENT: dry, intact, warm. ABSENT: cyanosis, rash Results Laboratory Results: 09/02/18 05:12 09/02/18 05:12 09/01/18 09/02/18 09/02/18 19:16 05:12 05:12 WBC 5.4 RBC 3.84 L Hgb 12.1 L Hct 34.0 L MCV 88 MCH 31.4 MCHC 35.4 RDW 12.7 Plt Count 117 L Seg Neutrophils % 69.5 Lymphocytes % 20.3 Monocytes % 8.7 Eosinophils % 0.9 Basophils % 0.6 Absolute Neutrophils 3.8 Absolute Lymphocytes 1.1 Absolute Monocytes 0.5 Absolute Eosinophils 0.0 Absolute Basophils 0.0 Sodium 135.5 L 136.3 L Potassium 3.9 4.2 Chloride 103 109 H Carbon Dioxide 17 L 16 L Anion Gap 16 11 BUN 69 H 66 H Creatinine 7.98 H 8.11 H Est GFR ( Amer) 9 L 9 L Est GFR (Non-Af Amer) 7 L 7 L Glucose 87 91 Calcium 8.0 L 7.5 L Magnesium 2.7 H Total Bilirubin 0.8 AST 320 H ALT 172 H Alkaline Phosphatase 37 L Total Protein 5.1 L Albumin 2.8 L PTH Intact 09/02/18 12:35 WBC RBC Hgb Hct MCV MCH MCHC RDW Plt Count Seg Neutrophils % Lymphocytes % Monocytes % Eosinophils % Basophils % Absolute Neutrophils Absolute Lymphocytes Absolute Monocytes Absolute Eosinophils Absolute Basophils Sodium Potassium Chloride Carbon Dioxide Anion Gap BUN Creatinine Est GFR ( Amer) Est GFR (Non-Af Amer) Glucose Calcium Magnesium Total Bilirubin AST ALT Alkaline Phosphatase Total Protein Albumin PTH Intact 136.8 H 08/30/18 08/30/18 08/30/18 16:18 18:30 18:30 Creatine Kinase 22221 H 021670 H CK-MB (CK-2) 24.40 H Troponin I 0.048 08/31/18 08/31/18 08/31/18 01:03 01:03 07:05 Creatine Kinase 69395 H 90051 H CK-MB (CK-2) 20.40 H Troponin I 0.036 08/31/18 09/01/18 09/02/18 07:05 04:21 05:12 Creatine Kinase 40450 H 73544 H CK-MB (CK-2) 16.70 H Troponin I 0.026 Impressions: Abdomen Ultrasound 08/30/18 00:00 IMPRESSION: Accentuation the portal triads throughout the liver parenchyma, raising the possibility of acute hepatitis. However, the liver does not appear significantly enlarged. Correlate. Echogenic right kidney, raising the possibility of medical renal disease. copyright 2010 [employer]- All Rights Reserved Assessment and Plan - Diagnosis (1) ANGEL (acute kidney injury) Is this a current diagnosis for this admission?: Yes Plan: Nonoliguric. Worsening kidney function. No sign of volume overload however becoming more acidotic. Denies any uremic symptoms except for mild nausea. 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 09/01/2018: Sodium 133.5, bicarb 18, creatinine 7.53 up from 4.09 on admission, corrected calcium 8.3 , [place] [address] down from 529178 09/02/2018. Sodium 136, bicarb 16, creatinine 8.11, 7.5, albumin 2.8. AST 320, [place] [address] [place] [address]. Continue IV fluids. Monitor volume status, electrolytes, and vitals. Continue prerenal diet. Nephrology on board. SUPERVISOR FUSING ROOM will be initiated if kidney function does not improve. (2) Rhabdomyolysis Qualifiers: Rhabdomyolysis type: non-traumatic Qualified Code(s): M62.82 - Rhabdomyolysis Is this a current diagnosis for this admission?: Yes Plan: Due to intense workout session at work. Stating that he had a continuous 12- hour intense workout session at work part of his training at [employer] team. 09/02/2017: [place] [address] Continue IV fluids guided by volume status and vitals. Strict in and out. (3) Hypocalcemia Is this a current diagnosis for this admission?: Yes Plan: Likely due to ANGEL and liver injury due to rhabdomyolysis. Corrected calcium 8.3. Continue calcium supplement. CMP tomorrow. (4) Metabolic acidosis Is this a current diagnosis for this admission?: Yes Plan: Most likely due to ANGEL caused by rhabdomyolysis. 09/01/2018: [place]icar[place] 18,[place] [address] down from 430240. 09/02/2018: bicarb 16, creatinine 8.11, Ca 7.5, albumin 2.8. AST 320, [place] 172, [place] [address] Continue treatment for the underlying causes. (5) Dehydration Is this a current diagnosis for this admission?: Yes Plan: Continue volume resuscitation guided by volume status and vitals. (6) Elevated liver enzymes Is this a current diagnosis for this admission?: Yes Plan: Improving. Likely due to rhabdomyolysis patient denies any history of alcohol intake, history of alcoholic hepatitis. 09/02/2018: AST 320, [place] 172[place] [address] 09/01/2018: AST 432 ALT 176 08/30/2018. Abdominal ultrasound. Accentuation of the portal triads throughout the liver parenchyma, raising the possibility of acute hepatitis. However the liver does not appear significantly enlarged. LFTs for tomorrow. Hepatitis panel pending. Gastroenterology consulted. (7) Nausea & vomiting Qualifiers: Vomiting type: unspecified Vomiting Intractability: non-intractable Qualified Code(s): R11.2 - Nausea with vomiting, unspecified Is this a current diagnosis for this admission?: Yes Plan: Improving. Most likely due to ANGEL and rhabdomyolysis. Continue supportive me asures. Electrolytes and replace as needed.
[2018-09-02] MEDS: ENOXAPARIN SODIUM INJ 30 MG/0.3 ML DISP.SYRIN SUBCUT SCH (17:20)
[2018-09-02] MEDS: TRAZODONE HCL 50 MG TABLET PO PRN (21:27)
[2018-09-02] MEDS: CYCLOBENZAPRINE HCL 10 MG TABLET PO SCH (21:27)
--- NOTE | 2018-09-02 21:47 | PDOC PROGRESS REPORT ---
Subjective Progress Note for:: 09/02/18 Subjective:: Patient's kidney function unfortunately continued to deteriorate despite aggressive IV fluid hydration. He is making urine but not as much as expected. He made about 1605 mL of urine for the last 24 hours. His urine color has improved though. Patient continues to have no appetite but denies any more nausea. Due to worsening kidney function I recommended that patient have acute renal replacement therapy in the form of hemodialysis today which the patient has consented. We asked our surgical list, Dr. Sarkar to place a temporary trialysis catheter this morning. I saw the patient during dialysis treatment this afternoon. He was tolerating dialysis well without any problems no complaints. He was hemodynamically stable throughout dialysis treatment. Reason For Visit: ACUTE RENAL FAILURE Physical Exam Vital Signs: Temp Pulse Resp BP Pulse Ox 98.6 F 52 L 20 118/69 97 09/02/18 08:00 09/02/18 08:00 09/02/18 08:00 09/02/18 08:00 09/02/18 08:00 Intake & Output 09/01/18 09/02/18 09/03/18 06:59 06:59 06:59 Intake Total 4218 3200 Output Total 550 1020 Balance 3668 2180 Weight 92.9 kg 97.5 kg Vitals during dialysis: Blood pressure 142/92, heart rate of 42, blood flow rate of 250 mL/min and dialysate flow rate of 500 mL/min. Exam: General appearance: PRESENT: no acute distress, cooperative, well-developed, well-nourished Head exam: PRESENT: atraumatic, normocephalic Eye exam: PRESENT: conjunctiva pink, PERRLA. ABSENT: scleral icterus Neck exam: ABSENT: JVD Respiratory exam: PRESENT: Normal breath sounds. ABSENT: crackles, rales, rhonchi, unlabored, wheezes Cardiovascular exam: PRESENT: Regular rate rhythm -+S1, +S2. ABSENT: diastolic murmur, systolic murmur GI/Abdominal exam: PRESENT: normal bowel sounds, soft. ABSENT: guarding, mass, tenderness Extremities exam: His upper and lower extremities seems to be slightly swollen Neurological exam: PRESENT: alert, awake, oriented to person, place and time. Skin exam: PRESENT: dry, warm, Cardiovascular exam: PRESENT: +S1, +S2. ABSENT: RRR GI/Abdominal exam: PRESENT: soft, tenderness - -sore. ABSENT: ascites, distended, guarding, mass Results Laboratory Results: 09/02/18 05:12 09/02/18 05:12 09/01/18 09/02/18 09/02/18 19:16 05:12 05:12 WBC 5.4 RBC 3.84 L Hgb 12.1 L Hct 34.0 L MCV 88 MCH 31.4 MCHC 35.4 RDW 12.7 Plt Count 117 L Seg Neutrophils % 69.5 Lymphocytes % 20.3 Monocytes % 8.7 Eosinophils % 0.9 Basophils % 0.6 Absolute Neutrophils 3.8 Absolute Lymphocytes 1.1 Absolute Monocytes 0.5 Absolute Eosinophils 0.0 Absolute Basophils 0.0 Sodium 135.5 L 136.3 L Potassium 3.9 4.2 Chloride 103 109 H Carbon Dioxide 17 L 16 L Anion Gap 16 11 BUN 69 H 66 H Creatinine 7.98 H 8.11 H Est GFR ( Amer) 9 L 9 L Est GFR (Non-Af Amer) 7 L 7 L Glucose 87 91 Calcium 8.0 L 7.5 L Magnesium 2.7 H Total Bilirubin 0.8 AST 320 H ALT 172 H Alkaline Phosphatase 37 L Total Protein 5.1 L Albumin 2.8 L PTH Intact 09/02/18 12:35 WBC RBC Hgb Hct MCV MCH MCHC RDW Plt Count Seg Neutrophils % Lymphocytes % Monocytes % Eosinophils % Basophils % Absolute Neutrophils Absolute Lymphocytes Absolute Monocytes Absolute Eosinophils Absolute Basophils Sodium Potassium Chloride Carbon Dioxide Anion Gap BUN Creatinine Est GFR ( Amer) Est GFR (Non-Af Amer) Glucose Calcium Magnesium Total Bilirubin AST ALT Alkaline Phosphatase Total Protein Albumin PTH Intact 136.8 H 08/30/18 08/30/18 08/30/18 16:18 18:30 18:30 Creatine Kinase 20862 H 514216 H CK-MB (CK-2) 24.40 H Troponin I 0.048 08/31/18 08/31/18 08/31/18 01:03 01:03 07:05 Creatine Kinase 17183 H 99074 H CK-MB (CK-2) 20.40 H Troponin I 0.036 08/31/18 09/01/18 09/02/18 07:05 04:21 05:12 Creatine Kinase 41060 H 16273 H CK-MB (CK-2) 16.70 H Troponin I 0.026 Impressions: Abdomen Ultrasound 08/30/18 00:00 IMPRESSION: Accentuation the portal triads throughout the liver parenchyma, raising the possibility of acute hepatitis. However, the liver does not appear significantly enlarged. Correlate. Echogenic right kidney, raising the possibility of medical renal disease. 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 Patient is nonoliguric. However patient's kidney function is still getting worse and not better. I spoke to the patient yesterday that if his kidney function continues to get worse we might need to do acute renal replacement therapy to help for solute clearance. Discussed the procedure risks and benefits of renal replacement therapy with the patient. Patient indicated that he would agree to proceed if necessary. Today his kidney function did not show any improvement with creatinine of 8.11. So we prepared him to do hemodialysis treatment today. I asked Dr. Sarkar, surgical list to put a temporary trialysis catheter which he did this morning. We did dialysis today for 2.5 hours, using the patient's trialysis catheter, with 3 potassium bath, blood flow rate of 250 mL per minute, dialysate flow rate of 500 mL per minute, ultrafiltration 1 to 1.5 L only as tolerated, no heparin and no Procrit. Dialysis prescription discussed with her nurse. Patient was monitored throughout dialysis treatment. Total ultrafiltration was about 1800 mL at the end of dialysis. We will decrease the patient's IV fluids 250 mL an hour and encourage oral fluid intake. We will reevaluate the patient for further need of hemodialysis on Wednesday. (2) Rhabdomyolysis Qualifiers: Rhabdomyolysis type: non-traumatic Qualified Code(s): M62.82 - Rhabdomyolysis Is this a current diagnosis for this admission?: Yes Plan: CPK is progressively decreasing with IV fluid hydration. Continue normal saline but decrease the rate to 150 mL/ hour. (3) Dehydration Is this a current diagnosis for this admission?: Yes Plan: Continue IV fluid hydration. (4) Elevated liver enzymes Is this a current diagnosis for this admission?: Yes Plan: Ultrasound revealed possibility of acute hepatitis. Defer to hospitalist. (5) Hypocalcemia Is this a current diagnosis for this admission?: Yes Plan: Improving with corrected calcium level of 8.46 today. (6) Nausea & vomiting Qualifiers: Vomiting type: unspecified Vomiting Intractability: non-intractable Qualified Code(s): R11.2 - Nausea with vomiting, unspecified Is this a current diagnosis for this admission?: Yes Plan: Resolved. (7) Anemia Is this a current diagnosis for this admission?: Yes (8) Hyponatremia Is this a current diagnosis for this admission?: Yes Plan: Improving. (9) Metabolic acidosis Is this a current diagnosis for this admission?: Yes Plan: Hemodialysis should improve this. - Time Time with patient: 15-25 minutes
[2018-09-03] MEDS: NORMAL SALINE 1000 ML 1,000 ML IV PRN ×2 (05:37→21:48)
[2018-09-03 06:14] LABS: ABSOLUTE EOSINOPHILS # (AUTO) 0.1 10^3/uL (0.0-0.6); ABSOLUTE LYMPHOCYTES (AUTO) 1.1 10^3/uL (0.5-4.7); ABSOLUTE MONOCYTES (AUTO) 0.5 10^3/uL (0.1-1.4); ABSOLUTE NEUT (AUTO) 3.2 10^3/uL (1.7-8.2); BASOPHILS % (AUTO) 0.7 % (0-2); EOSINOPHILS % (AUTO) 1.3 % (0-6); HEMOGLOBIN 12.2 g/dL (13.5-17.0); LYMPHOCYTES % (AUTO) 22.3 % (13-45); MEAN CORPUSCULAR HEMOGLOBIN 31.4 pg (27.0-33.4); MEAN CORPUSCULAR HGB CONC 35.9 g/dL (32.0-36.0); MEAN CORPUSCULAR VOLUME 88 fl (80-97); MONOCYTES % (AUTO) 11.1 % (3-13); PLATELET COUNT 126 10^3/uL (150-450); RED BLOOD COUNT 3.89 10^6/uL (4.35-5.55); RED CELL DISTRIBUTION WIDTH 12.7 % (11.5-14.0); SEGMENTED NEUTROPHILS % (AUTO) 64.6 % (42-78); TOTAL CELLS COUNTED % (AUTO) 100 %; WHITE BLOOD COUNT 4.9 10^3/uL (4.0-10.5)
[2018-09-03 06:34] LABS: ALANINE AMINOTRANSFERASE 160 U/L (21-72); ALKALINE PHOSPHATASE 40 U/L (38-126); ANION GAP 8 (5-19); ASPARTATE AMINO TRANSFERASE 223 U/L (17-59); BILIRUBIN,DIRECT 0.4 mg/dL (0.0-0.4); BILIRUBIN,TOTAL 0.9 mg/dL (0.2-1.3); BLOOD UREA NITROGEN 44 mg/dL (7-20); CALCIUM 7.9 mg/dL (8.4-10.2); CARBON DIOXIDE 21 mmol/L (22-30); CHLORIDE 109 mmol/L (98-107); GLUCOSE 90 mg/dL (75-110); POTASSIUM 4.1 mmol/L (3.6-5.0); SODIUM 138.3 mmol/L (137-145); TOTAL PROTEIN 5.2 g/dL (6.3-8.2)
[2018-09-03 07:00] LABS: CREATINE KINASE 15790 U/L (55-170)
[2018-09-03 08:37] LABS: HEPATITIS A AB IGM Negative (Negative); HEPATITIS B CORE AB IGM Negative (Negative); HEPATITS B SURFACE ANTIGEN Negative (Negative)
[2018-09-03] MEDS: ENOXAPARIN SODIUM INJ 30 MG/0.3 ML DISP.SYRIN SUBCUT SCH (09:08)
[2018-09-03] MEDS: FAMOTIDINE 20 MG TABLET PO SCH ×2 (09:28→21:49)
[2018-09-03] MEDS: CALCIUM CARBONATE 500 MG TABLET PO SCH (09:28)
--- NOTE | 2018-09-03 10:04 | OPERATIVE REPORT E ---
Operative Report NAME: EMILIE CHAVEZ JR : 1975 AGE: 43Y DATE OF SURGERY: ROOM: 424 PREOPERATIVE DIAGNOSIS: Need of intravenous (IV) access for hemodialysis, placement of right femoral vein hemodialysis catheter. SURGEON: JOCELINE VILLALOBOS M.D. NAIL SPECIALIST: none COMPLICATIONS: None. ANESTHESIA: Lidocaine 1% without epinephrine, 20 mL. INDICATIONS AND FINDINGS: This is a 43-year-old male who was performing heavy exercise who developed severe muscle pain, found to have rhabdomyolysis with worsening of his kidney function and decreased urine output. It was requested to place a groin hemodialysis catheter. DESCRIPTION OF PROCEDURE: It was done at bedside with the patient in the supine position. The right groin prepped and draped in sterile fashion. The femoral artery was identified by palpation. The area was infiltrated with lidocaine and a 16 gauge needle was used to easily cannulate the femoral vein followed by insertion of guidewire through the needle into the femoral vein and iliac vein. The needle was removed and insertion point of the guidewire was enlarged with a #11 blade and tissue dilator, which were then removed followed by insertion of the catheter up to the hub. The guidewire was then removed. Each port for the catheter was then aspirated and flushed with normal saline. The catheter was secured to the skin nylon sutures and sterile dressing was applied. The patient tolerated the procedure well and the line can be used immediately. DICTATING PHYSICIAN: JOCELINE VILLALOBOS M.D. [id number] PHY#: [id number] ID: [id number] JOB#: [id number] ACCT: [id number] cc:JOCELINE VILLALOBOS M.D. > MTDD
--- NOTE | 2018-09-03 13:56 | PDOC PROGRESS REPORT ---
Subjective Progress Note for:: 09/03/18 Subjective:: EMILIE CHAVEZ JR is a 43 year old male with history of hernia repair, right shoulder surgery, right bicep repair came to the emergency room with complaints of nausea and vomitings decreased urinary output since yesterday. 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 2 times may be less than 10 cc whole day. After the workout went home try to urinate less than 5 cc of brownish tinge colored urine came out and he tried to eat unable to eat even a small piece of banana and he threw back up decided to came to the emergency room for further evaluation. In the emergency room work-up was done found to have a creatinine of 4.07 given 1 L of normal saline IV bolus and found to have elevated LFTs medical consult was called for admission. Patient denies any past medical history except for the small surgical procedures and denies of naproxyn. denies fever denies chest pains cough headaches diarrhea. Complains of slight pain in the right upper quadrant. 09/02/2018. No acute events overnight. Patient still complaining of generalized soreness, mild nausea, denies any vomiting, denies any uremic symptoms, p.o. tolerant, having normal bowel and bladder movements. Denies any decrease in her urine output. 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 Denies any fever, chest pain, shortness of breath, chills, vomiting, abdominal pain or any urinary symptoms. WBC 5.4, hemoglobin 12.1, platelets 117, sodium 136, bicarb 16, creatinine 8.11, 7.5, albumin 2.8. AST 320, [place] 172[place] [address] 09/03/2018. No acute events overnight. Status post hemodialysis 09/02/2018. Generalized weakness and nausea improving. Complaining of upper extremity swelling. Denies any fever, chills, nausea, vomiting, diarrhea, constipation or any urinary symptoms. Reason For Visit: ACUTE RENAL FAILURE Physical Exam Vital Signs: Temp Pulse Resp BP Pulse Ox 98.6 F 54 L 16 124/68 96 09/03/18 07:17 09/03/18 07:17 09/03/18 07:17 09/03/18 07:17 09/03/18 07:17 Intake & Output 09/02/18 09/03/18 09/04/18 06:59 06:59 06:59 Intake Total 3200 4184 Output Total 1020 3875 Balance 2180 309 Weight 97.5 kg 95.3 kg Results Laboratory Results: 09/03/18 05:22 09/03/18 05:22 09/03/18 09/03/18 05:22 05:22 WBC 4.9 RBC 3.89 L Hgb 12.2 L Hct 34.0 L MCV 88 MCH 31.4 MCHC 35.9 RDW 12.7 Plt Count 126 L Seg Neutrophils % 64.6 Lymphocytes % 22.3 Monocytes % 11.1 Eosinophils % 1.3 Basophils % 0.7 Absolute Neutrophils 3.2 Absolute Lymphocytes 1.1 Absolute Monocytes 0.5 Absolute Eosinophils 0.1 Absolute Basophils 0.0 Sodium 138.3 Potassium 4.1 Chloride 109 H Carbon Dioxide 21 L Anion Gap 8 BUN 44 H Creatinine 6.20 H Est GFR ( Amer) 12 L Est GFR (Non-Af Amer) 10 L Glucose 90 Calcium 7.9 L Magnesium 2.2 Total Bilirubin 0.9 AST 223 H ALT 160 H Alkaline Phosphatase 40 Total Protein 5.2 L Albumin 3.0 L 08/30/18 08/30/18 08/30/18 16:18 18:30 18:30 Creatine Kinase 87518 H 383169 H CK-MB (CK-2) 24.40 H Troponin I 0.048 08/31/18 08/31/18 08/31/18 01:03 01:03 07:05 Creatine Kinase 25186 H 59053 H CK-MB (CK-2) 20.40 H Troponin I 0.036 08/31/18 09/01/18 09/02/18 07:05 04:21 05:12 Creatine Kinase 17092 H 74310 H CK-MB (CK-2) 16.70 H Troponin I 0.026 09/03/18 05:22 Creatine Kinase 46399 H CK-MB (CK-2) Troponin I Impressions: Abdomen Ultrasound 08/30/18 00:00 IMPRESSION: Accentuation the portal triads throughout the liver parenchyma, raising the possibility of acute hepatitis. However, the liver does not appear significantly enlarged. Correlate. Echogenic right kidney, raising the possibility of medical renal disease. copyright 2010 [employer]- All Rights Reserved Assessment and Plan - Diagnosis (1) ANGEL (acute kidney injury) Is this a current diagnosis for this admission?: Yes Plan: Nonoliguric. Worsening kidney function. Status post HD 09/02/2018. Has mild bilateral hand swelling. Denies any uremic symptoms except for mild nausea. 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 Patient may have had some kind of CKD as PTH 136, renal ultrasound positive for chronic medical disease. 09/03/2018: Sodium 138.3, potassium 4.1, bicarb 21, BUN 44, creatinine 6.2. AST 223, AST 160, alk phos 40, CK 15,790 Th1 36.8. 09/02/2018. Sodium renal ultrasound bicarb 16, creatinine 8.11, 7.5, albumin 2.8. AST 320, [place] 172, [place] [address] down from [address]. 09/01/2018: Sodium 133.5, bicarb 18, creatinine 7.53 up from 4.09 on admission, corrected calcium 8.3 , [place] [address] down from 644296 Decrease NS to 150 cc/h. Monitor volume status, electrolytes, and vitals. Continue prerenal diet. Nephrology on board. (2) Rhabdomyolysis Qualifiers: Rhabdomyolysis type: non-traumatic Qualified Code(s): M62.82 - Rhabdomyolysis Is this a current diagnosis for this admission?: Yes Plan: Due to intense workout session at work. 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 Continue IV fluids guided by volume status and vitals. Strict in and out. (3) Hypocalcemia Is this a current diagnosis for this admission?: Yes Plan: Likely due to ANGEL and liver injury due to rhabdomyolysis. Corrected calcium 8.3. Continue calcium supplement. CMP tomorrow. (4) Metabolic acidosis Is this a current diagnosis for this admission?: Yes Plan: Improving. Most likely due to ANGEL caused by rhabdomyolysis. 09/03/2018: bicarb 21, BUN 44, creatinine 6.2. AST 223, AST 160, alk phos 40, CK 15,790 Th1 36.8. 09/02/2018: bicarb 16, creatinine 8.11, Ca 7.5, albumin 2.8. AST 320, [place] 172, [place] [address] 09/01/2018: bicarb 18,[place] [address] down from 808143. Continue treatment for the underlying causes. (5) Elevated liver enzymes Is this a current diagnosis for this admission?: Yes Plan: Improving. Likely due to rhabdomyolysis patient denies any history of alcohol intake, history of alcoholic hepatitis. 09/03/2018: AST 223, AST 160, alk phos 40, CK 15,790 Th1 36.8. 09/02/2018: AST 320, [place] 172[place] [address] 09/01/2018: AST 432 ALT 176 08/30/2018. Abdominal ultrasound. Accentuation of the portal triads throughout the liver parenchyma, raising the possibility of acute hepatitis. However the liver does not appear significantly enlarged. LFTs for tomorrow. Hepatitis panel pending. Gastroenterology consulted.
[2018-09-03 17:51] LABS: HEPATITIS C VIRUS ANTIBODY <0.1 s/co ratio (0.0-0.9)
[2018-09-03] MEDS: HYDRALAZINE HCL 10 MG TABLET PO PRN (20:45)
[2018-09-03] MEDS: TRAZODONE HCL 50 MG TABLET PO PRN (21:50)
[2018-09-03] MEDS: CYCLOBENZAPRINE HCL 10 MG TABLET PO SCH (21:50)
[2018-09-04] MEDS: NORMAL SALINE 1000 ML 1,000 ML IV PRN ×2 (04:32→19:15)
[2018-09-04 05:19] LABS: ABSOLUTE BASOPHILS # (AUTO) 0.1 10^3/uL (0.0-0.2); ABSOLUTE EOSINOPHILS # (AUTO) 0.2 10^3/uL (0.0-0.6); ABSOLUTE LYMPHOCYTES (AUTO) 1.3 10^3/uL (0.5-4.7); ABSOLUTE MONOCYTES (AUTO) 0.7 10^3/uL (0.1-1.4); ABSOLUTE NEUT (AUTO) 3.8 10^3/uL (1.7-8.2); EOSINOPHILS % (AUTO) 2.5 % (0-6); HEMATOCRIT 35.3 % (37.9-51.0); HEMOGLOBIN 12.4 g/dL (13.5-17.0); LYMPHOCYTES % (AUTO) 21.1 % (13-45); MEAN CORPUSCULAR HEMOGLOBIN 31.4 pg (27.0-33.4); MEAN CORPUSCULAR VOLUME 90 fl (80-97); MONOCYTES % (AUTO) 11.3 % (3-13); PLATELET COUNT 141 10^3/uL (150-450); RED BLOOD COUNT 3.93 10^6/uL (4.35-5.55); RED CELL DISTRIBUTION WIDTH 12.5 % (11.5-14.0); SEGMENTED NEUTROPHILS % (AUTO) 64.1 % (42-78); TOTAL CELLS COUNTED % (AUTO) 100 %
[2018-09-04 05:45] LABS: ALANINE AMINOTRANSFERASE 145 U/L (21-72); ALBUMIN 3.2 g/dL (3.5-5.0); ALKALINE PHOSPHATASE 43 U/L (38-126); ANION GAP 7 (5-19); ASPARTATE AMINO TRANSFERASE 138 U/L (17-59); BILIRUBIN,DIRECT 0.4 mg/dL (0.0-0.4); BILIRUBIN,TOTAL 0.8 mg/dL (0.2-1.3); BLOOD UREA NITROGEN 41 mg/dL (7-20); CALCIUM 8.4 mg/dL (8.4-10.2); CARBON DIOXIDE 22 mmol/L (22-30); CHLORIDE 113 mmol/L (98-107); GLUCOSE 97 mg/dL (75-110); SODIUM 142.4 mmol/L (137-145); TOTAL PROTEIN 5.7 g/dL (6.3-8.2)
[2018-09-04 06:08] LABS: CREATINE KINASE 6641 U/L (55-170)
[2018-09-04] MEDS: HYDRALAZINE HCL 10 MG TABLET PO PRN (07:47)
[2018-09-04] MEDS: CALCIUM CARBONATE 500 MG TABLET PO SCH (09:30)
[2018-09-04] MEDS: AMLODIPINE BESYLATE 5 MG TABLET PO SCH (09:30)
[2018-09-04] MEDS: FAMOTIDINE 20 MG TABLET PO SCH ×2 (09:30→21:17)
[2018-09-04] MEDS: ENOXAPARIN SODIUM INJ 30 MG/0.3 ML DISP.SYRIN SUBCUT SCH (09:42)
--- NOTE | 2018-09-04 12:17 | PDOC PROGRESS REPORT ---
Subjective Progress Note for:: 09/04/18 Subjective:: EMILIE CHAVEZ JR is a 43 year old male with history of hernia repair, right shoulder surgery, right bicep repair came to the emergency room with complaints of nausea and vomitings decreased urinary output since yesterday. 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 2 times may be less than 10 cc whole day. After the workout went home try to urinate less than 5 cc of brownish tinge colored urine came out and he tried to eat unable to eat even a small piece of banana and he threw back up decided to came to the emergency room for further evaluation. In the emergency room work-up was done found to have a creatinine of 4.07 given 1 L of normal saline IV bolus and found to have elevated LFTs medical consult was called for admission. Patient denies any past medical history except for the small surgical procedures and denies of naproxyn. denies fever denies chest pains cough headaches diarrhea. Complains of slight pain in the right upper quadrant. 09/02/2018. No acute events overnight. Patient still complaining of generalized soreness, mild nausea, denies any vomiting, denies any uremic symptoms, p.o. tolerant, having normal bowel and bladder movements. Denies any decrease in her urine output. Unfortunately his creatinine is increasing and he is becoming more acidotic nephrology has started him on [employer] today. Denies any fever, chest pain, shortness of breath, chills, vomiting, abdominal pain or any urinary symptoms. WBC 5.4, hemoglobin 12.1, platelets 117, sodium 136, bicarb 16, creatinine 8.11, 7.5, albumin 2.8. AST 320, [place] [address] 09/03/2018. No acute events overnight. Status post hemodialysis 09/02/2018. Generalized weakness and nausea improving. Complaining of upper extremity swelling. Denies any fever, chills, nausea, vomiting, diarrhea, constipation or any urinary symptoms. 09/04/2018. No acute events overnight, complaining of generalized weakness, ambulatory, normal bowel and bladder movement, p.o. tolerant, complaining of mild bilateral hand swelling, denies any fever, shortness of breath, chest pain, nausea, vomiting, diarrhea, constipation or any urinary symptoms. Sodium 142.2, potassium 4.0, bicarb 22, BUN 41, creatinine 5.5, CK 6641. AST 138, ALT 145, albumin 3.2. Ca 8.4 Reason For Visit: ACUTE RENAL FAILURE Physical Exam Vital Signs: Temp Pulse Resp BP Pulse Ox 98.6 F 46 L 16 148/116 H 100 09/04/18 07:37 09/04/18 07:37 09/04/18 07:37 09/04/18 07:37 09/04/18 07:37 Intake & Output 09/03/18 09/04/18 09/05/18 06:59 06:59 06:59 Intake Total 4184 2000 Output Total 3875 1395 Balance 309 605 Weight 95.3 kg 95.3 kg General appearance: PRESENT: no acute distress, well-developed, well-nourished Head exam: PRESENT: atraumatic, normocephalic Eye exam: PRESENT: conjunctiva pink, EOMI, PERRLA. ABSENT: scleral icterus Ear exam: PRESENT: normal external ear exam Mouth exam: PRESENT: moist, tongue midline Neck exam: ABSENT: carotid bruit, JVD, lymphadenopathy, thyromegaly Respiratory exam: PRESENT: clear to auscultation boy. ABSENT: rales, rhonchi, wheezes Cardiovascular exam: PRESENT: RRR. ABSENT: diastolic murmur, rubs, systolic murmur Pulses: PRESENT: normal dorsalis pedis pul Vascular exam: PRESENT: normal capillary refill GI/Abdominal exam: PRESENT: normal bowel sounds, soft. ABSENT: distended, guarding, mass, organolmegaly, rebound, tenderness Rectal exam: PRESENT: deferred Extremities exam: PRESENT: full ROM. ABSENT: calf tenderness, clubbing, pedal edema Neurological exam: PRESENT: alert, awake, oriented to person, oriented to place, oriented to time, oriented to situation, CN II-XII grossly intact. ABSENT: motor sensory deficit Psychiatric exam: PRESENT: appropriate affect, normal mood. ABSENT: homicidal ideation, suicidal ideation Skin exam: PRESENT: dry, intact, warm. ABSENT: cyanosis, rash Results Laboratory Results: 09/04/18 04:51 09/04/18 04:51 09/04/18 09/04/18 04:51 04:51 WBC 6.0 RBC 3.93 L Hgb 12.4 L Hct 35.3 L MCV 90 MCH 31.4 MCHC 35.0 RDW 12.5 Plt Count 141 L Seg Neutrophils % 64.1 Lymphocytes % 21.1 Monocytes % 11.3 Eosinophils % 2.5 Basophils % 1.0 Absolute Neutrophils 3.8 Absolute Lymphocytes 1.3 Absolute Monocytes 0.7 Absolute Eosinophils 0.2 Absolute Basophils 0.1 Sodium 142.4 Potassium 4.0 Chloride 113 H Carbon Dioxide 22 Anion Gap 7 BUN 41 H Creatinine 5.55 H Est GFR ( Amer) 14 L Est GFR (Non-Af Amer) 11 L Glucose 97 Calcium 8.4 Magnesium 2.0 Total Bilirubin 0.8 AST 138 H ALT 145 H Alkaline Phosphatase 43 Total Protein 5.7 L Albumin 3.2 L 08/30/18 08/30/18 08/30/18 16:18 18:30 18:30 Creatine Kinase 08575 H 769068 H CK-MB (CK-2) 24.40 H Troponin I 0.048 08/31/18 08/31/18 08/31/18 01:03 01:03 07:05 Creatine Kinase 64751 H 87306 H CK-MB (CK-2) 20.40 H Troponin I 0.036 08/31/18 09/01/18 09/02/18 07:05 04:21 05:12 Creatine Kinase 59538 H 66145 H CK-MB (CK-2) 16.70 H Troponin I 0.026 09/03/18 09/04/18 05:22 04:51 Creatine Kinase 51927 H 6641 H CK-MB (CK-2) Troponin I Impressions: Abdomen Ultrasound 08/30/18 00:00 IMPRESSION: Accentuation the portal triads throughout the liver parenchyma, raising the possibility of acute hepatitis. However, the liver does not appear significantly enlarged. Correlate. Echogenic right kidney, raising the possibility of medical renal disease. copyright 2010 [employer]- All Rights Reserved Assessment and Plan - Diagnosis (1) ANGEL (acute kidney injury) Is this a current diagnosis for this admission?: Yes Plan: Nonoliguric. Improving. Status post HD 09/02/2018. Has mild bilateral hand swelling. Denies any uremic symptoms except for mild nausea. 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 Patient may have had some kind of CKD as PTH 136, renal ultrasound positive for chronic medical disease. 08/04/2018: Sodium 142.2, potassium 4.0, bicarb 22, BUN 41, creatinine 5.5, CK 6641. AST 138, ALT 145, albumin 3.2. Ca 8.4 09/03/2018: Sodium 138.3, potassium 4.1, bicarb 21, BUN 44, creatinine 6.2. AST 223, AST 160, alk phos 40, CK 15,790 Th1 36.8. 09/02/2018. Sodium renal ultrasound bicarb 16, creatinine 8.11, 7.5, albumin 2.8. AST 320, [place] [address] [place] [address]. 09/01/2018: Sodium 133.5, bicarb 18, creatinine 7.53 up from 4.09 on admission, corrected calcium 8.3 , [place] [address] down from [id number] Decrease NS to 125 cc/h. Monitor volume status, electrolytes, and vitals. Continue prerenal diet. Nephrology on board. (2) Rhabdomyolysis Qualifiers: Rhabdomyolysis type: non-traumatic Qualified Code(s): M62.82 - Rhabdomyolysis Is this a current diagnosis for this admission?: Yes Plan: Due to intense workout session at work. 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 Continue IV fluids guided by volume status and vitals. 08/04/2018: Sodium 142.2, potassium 4.0, bicarb 22, BUN 41, creatinine 5.5, CK 6641. AST 138, ALT 145, albumin 3.2. Ca 8.4 Strict in and out. (3) Hypocalcemia Is this a current diagnosis for this admission?: Yes Plan: Improving. Likely due to ANGEL and liver injury due to rhabdomyolysis. 09/04/2018. Sodium 142.2, potassium 4.0, bicarb 22, BUN 41, creatinine 5.5, CK 6641. AST 138, ALT 145, albumin 3.2. Ca 8.4 Continue calcium supplement. CMP tomorrow. (4) Metabolic acidosis Is this a current diagnosis for this admission?: Yes Plan: Resolved. Most likely due to ANGEL caused by rhabdomyolysis. Sodium 142.2, potassium 4.0, bicarb 22, BUN 41, creatinine 5.5, CK 6641. 09/03/2018: bicarb 21, BUN 44, creatinine 6.2. AST 223, AST 160, alk phos 40, CK 15,790 Th1 36.8. 09/02/2018: bicarb 16, creatinine 8.11, Ca 7.5, albumin 2.8. AST 320, [place] 172[place] [address] 09/01/2018: bicarb 18,[place] [address] down from 705142. Continue treatment for the underlying causes. (5) Elevated liver enzymes Is this a current diagnosis for this admission?: Yes Plan: Improving. Likely due to rhabdomyolysis patient denies any history of alcohol intake, history of alcoholic hepatitis. 09/04/2018. AST 138, ALT 145, albumin 3.2. Ca 8.4 09/03/2018: AST 223, AST 160, alk phos 40, CK 15,790 Th1 36.8. 09/02/2018: AST 320, [place] 172[place] [address] 09/01/2018: AST 432 ALT 176 08/30/2018. Abdominal ultrasound. Accentuation of the portal triads throughout the liver parenchyma, raising the possibility of acute hepatitis. However the liver does not appear significantly enlarged. LFTs for tomorrow. Hepatitis panel negative. Gastroenterology consulted.
[2018-09-04] MEDS: CYCLOBENZAPRINE HCL 10 MG TABLET PO SCH (21:17)
[2018-09-04] MEDS: TRAZODONE HCL 50 MG TABLET PO PRN (22:46)
[2018-09-05] MEDS: NORMAL SALINE 1000 ML 1,000 ML IV PRN ×3 (03:15→21:55)
[2018-09-05 05:52] LABS: ABSOLUTE BASOPHILS # (AUTO) 0.1 10^3/uL (0.0-0.2); ABSOLUTE EOSINOPHILS # (AUTO) 0.2 10^3/uL (0.0-0.6); ABSOLUTE LYMPHOCYTES (AUTO) 1.3 10^3/uL (0.5-4.7); ABSOLUTE MONOCYTES (AUTO) 0.6 10^3/uL (0.1-1.4); ABSOLUTE NEUT (AUTO) 4.2 10^3/uL (1.7-8.2); BASOPHILS % (AUTO) 0.9 % (0-2); EOSINOPHILS % (AUTO) 3.1 % (0-6); HEMATOCRIT 33.1 % (37.9-51.0); HEMOGLOBIN 11.6 g/dL (13.5-17.0); LYMPHOCYTES % (AUTO) 20.4 % (13-45); MEAN CORPUSCULAR HEMOGLOBIN 31.4 pg (27.0-33.4); MEAN CORPUSCULAR VOLUME 90 fl (80-97); MONOCYTES % (AUTO) 9.3 % (3-13); PLATELET COUNT 157 10^3/uL (150-450); RED CELL DISTRIBUTION WIDTH 12.9 % (11.5-14.0); SEGMENTED NEUTROPHILS % (AUTO) 66.3 % (42-78); TOTAL CELLS COUNTED % (AUTO) 100 %; WHITE BLOOD COUNT 6.3 10^3/uL (4.0-10.5)
[2018-09-05 06:15] LABS: ALANINE AMINOTRANSFERASE 118 U/L (21-72); ALKALINE PHOSPHATASE 40 U/L (38-126); ANION GAP 8 (5-19); ASPARTATE AMINO TRANSFERASE 84 U/L (17-59); BILIRUBIN,DIRECT 0.3 mg/dL (0.0-0.4); BILIRUBIN,TOTAL 0.5 mg/dL (0.2-1.3); BLOOD UREA NITROGEN 34 mg/dL (7-20); CALCIUM 8.6 mg/dL (8.4-10.2); CARBON DIOXIDE 21 mmol/L (22-30); CHLORIDE 116 mmol/L (98-107); GLUCOSE 86 mg/dL (75-110); POTASSIUM 4.1 mmol/L (3.6-5.0); TOTAL PROTEIN 5.3 g/dL (6.3-8.2)
[2018-09-05 06:24] LABS: CREATINE KINASE 2970 U/L (55-170)
[2018-09-05] MEDS: CALCIUM CARBONATE 500 MG TABLET PO SCH (10:43)
[2018-09-05] MEDS: FAMOTIDINE 20 MG TABLET PO SCH ×2 (10:43→21:16)
[2018-09-05] MEDS: AMLODIPINE BESYLATE 5 MG TABLET PO SCH (10:43)
[2018-09-05] MEDS: ENOXAPARIN SODIUM INJ 30 MG/0.3 ML DISP.SYRIN SUBCUT SCH (10:44)
--- NOTE | 2018-09-05 10:48 | PDOC PROGRESS REPORT ---
Subjective Progress Note for:: 09/05/18 Subjective:: 43 year old male with history of hernia repair, right shoulder surgery, right bicep repair came to the emergency room with complaints of nausea and vomitings decreased urinary output since yesterday. 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 2 times may be less than 10 cc whole day. After the workout went home try to urinate less than 5 cc of brownish tinge colored urine came out and he tried to eat unable to eat even a small piece of banana and he threw back up decided to came to the emergency room for further evaluation. In the emergency room work-up was done found to have a creatinine of 4.07 given 1 L of normal saline IV bolus and found to have elevated LFTs medical consult was called for admission. Patient denies any past medical history except for the small surgical procedures and denies of naproxyn. denies fever denies chest pains cough headaches diarrhea. Complains of slight pain in the right upper quadrant. 09/02/2018. No acute events overnight. Patient still complaining of generalized soreness, mild nausea, denies any vomiting, denies any uremic symptoms, p.o. tolerant, having normal bowel and bladder movements. Denies any decrease in her urine output. Unfortunately his creatinine is increasing and he is becoming more acidotic nephrology has started him on [employer]TER today. Denies any fever, chest pain, shortness of breath, chills, vomiting, abdominal pain or any urinary symptoms. WBC 5.4, hemoglobin 12.1, platelets 117, sodium 136, bicarb 16, creatinine 8.11, 7.5, albumin 2.8. AST 320, [place] 172[place] [address] 09/03/2018. No acute events overnight. Status post hemodialysis 09/02/2018. Generalized weakness and nausea improving. Complaining of upper extremity swelling. Denies any fever, chills, nausea, vomiting, diarrhea, constipation or any urinary symptoms. 09/04/2018. No acute events overnight, complaining of generalized weakness, ambulatory, normal bowel and bladder movement, p.o. tolerant, complaining of mild bilateral hand swelling, denies any fever, shortness of breath, chest pain, nausea, vomiting, diarrhea, constipation or any urinary symptoms. Sodium 142.2, potassium 4.0, bicarb 22, BUN 41, creatinine 5.5, CK 6641. AST 138, ALT 145, albumin 3.2. Ca 8.4 09/05/2018-no acute events in the last 24 hours. As per the nephrology team there is no indication for further dialysis based on the labs tomorrow plan is to remove the femoral dialysis catheter. Patient is comfortably in the chair denies any problems. Latest CK is 2970. Reason For Visit: ACUTE RENAL FAILURE Physical Exam Vital Signs: Temp Pulse Resp BP Pulse Ox 98.5 F 50 L 16 154/94 H 100 09/05/18 07:46 09/05/18 07:46 09/05/18 07:46 09/05/18 07:46 09/05/18 07:46 Intake & Output 09/04/18 09/05/18 09/06/18 06:59 06:59 06:59 Intake Total 1999 2280 Output Total 1395 3475 Balance 605 -1195 Weight 95.3 kg 95.3 kg General appearance: PRESENT: no acute distress Head exam: PRESENT: atraumatic Eye exam: PRESENT: PERRLA Neck exam: ABSENT: carotid bruit, JVD, lymphadenopathy, thyromegaly Respiratory exam: PRESENT: clear to auscultation boy. ABSENT: rales, rhonchi, wheezes Cardiovascular exam: PRESENT: RRR. ABSENT: diastolic murmur, rubs, systolic murmur GI/Abdominal exam: PRESENT: normal bowel sounds, soft. ABSENT: distended, guarding, mass, organolmegaly, rebound, tenderness Rectal exam: PRESENT: deferred Extremities exam: PRESENT: other - Dialysis catheter in the right groin. Neurological exam: PRESENT: alert, awake, oriented to person, oriented to place, oriented to time, oriented to situation, CN II-XII grossly intact. ABSENT: motor sensory deficit Psychiatric exam: PRESENT: appropriate affect, normal mood. ABSENT: homicidal ideation, suicidal ideation Results Laboratory Results: 09/05/18 04:51 09/05/18 04:51 09/05/18 09/05/18 04:51 04:51 WBC 6.3 RBC 3.70 L Hgb 11.6 L Hct 33.1 L MCV 90 MCH 31.4 MCHC 35.0 RDW 12.9 Plt Count 157 Seg Neutrophils % 66.3 Lymphocytes % 20.4 Monocytes % 9.3 Eosinophils % 3.1 Basophils % 0.9 Absolute Neutrophils 4.2 Absolute Lymphocytes 1.3 Absolute Monocytes 0.6 Absolute Eosinophils 0.2 Absolute Basophils 0.1 Sodium 145.0 Potassium 4.1 Chloride 116 H Carbon Dioxide 21 L Anion Gap 8 BUN 34 H Creatinine 4.16 H Est GFR ( Amer) 19 L Est GFR (Non-Af Amer) 16 L Glucose 86 Calcium 8.6 Phosphorus 4.0 Magnesium 1.7 Total Bilirubin 0.5 AST 84 H ALT 118 H Alkaline Phosphatase 40 Total Protein 5.3 L Albumin 3.0 L 08/30/18 08/30/18 08/30/18 16:18 18:30 18:30 Creatine Kinase 72875 H 464743 H CK-MB (CK-2) 24.40 H Troponin I 0.048 08/31/18 08/31/18 08/31/18 01:03 01:03 07:05 Creatine Kinase 87515 H 60155 H CK-MB (CK-2) 20.40 H Troponin I 0.036 08/31/18 09/01/18 09/02/18 07:05 04:21 05:12 Creatine Kinase 80650 H 79068 H CK-MB (CK-2) 16.70 H Troponin I 0.026 09/03/18 09/04/18 09/05/18 05:22 04:51 04:51 Creatine Kinase 78464 H 6641 H 2970 H CK-MB (CK-2) Troponin I Impressions: Abdomen Ultrasound 08/30/18 00:00 IMPRESSION: Accentuation the portal triads throughout the liver parenchyma, raising the possibility of acute hepatitis. However, the liver does not appear significantly enlarged. Correlate. Echogenic right kidney, raising the possibility of medical renal disease. copyright 2010 [employer]- All Rights Reserved Assessment and Plan - Diagnosis (1) ANGEL (acute kidney injury) Is this a current diagnosis for this admission?: Yes Plan: Nonoliguric. Improving. Status post HD 09/02/2018. Has mild bilateral hand swelling. Denies any uremic symptoms except for mild nausea. 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 Patient may have had some kind of CKD as PTH 136, renal ultrasound positive for chronic medical disease. 08/04/2018: Sodium 142.2, potassium 4.0, bicarb 22, BUN 41, creatinine 5.5, CK 6641. AST 138, ALT 145, albumin 3.2. Ca 8.4 09/03/2018: Sodium 138.3, potassium 4.1, bicarb 21, BUN 44, creatinine 6.2. AST 223, AST 160, alk phos 40, CK 15,790 Th1 36.8. 09/02/2018. Sodium renal ultrasound bicarb 16, creatinine 8.11, 7.5, albumin 2.8. AST 320, [place] 172[place] [address] [place] [address]. 09/01/2018: Sodium 133.5, bicarb 18, creatinine 7.53 up from 4.09 on admission, corrected calcium 8.3 , [place] [address] down from 588370 Decrease NS to 125 cc/h. Monitor volume status, electrolytes, and vitals. Continue prerenal diet. Nephrology on board. 09/05/2018-patient admitted with ANGEL most likely secondary to pigment induced nephropathy due to rhabdomyolysis. Latest creatinine is 4.11. Last dialysis on Wednesday. Creatinine is improving on daily basis. Presently on normal saline at 125 cc/h. Plan is to decrease the fluids to 75 cc/h. Nephrology on board, Dr. Alcantara thinks there is no need for further dialysis. I completely agree with him. (2) Elevated liver enzymes Is this a current diagnosis for this admission?: Yes Plan: Improving. Likely due to rhabdomyolysis patient denies any history of alcohol intake, history of alcoholic hepatitis. 09/04/2018. AST 138, ALT 145, albumin 3.2. Ca 8.4 09/03/2018: AST 223, AST 160, alk phos 40, CK 15,790 Th1 36.8. 09/02/2018: AST 320, [place] [address] 09/01/2018: AST 432 ALT 176 08/30/2018. Abdominal ultrasound. Accentuation of the portal triads throughout the liver parenchyma, raising the possibility of acute hepatitis. However the liver does not appear significantly enlarged. LFTs for tomorrow. Hepatitis panel negative. Gastroenterology consulted. 09/05/2018-patient came in with elevated liver enzymes they continue to improve elevated liver enzymes may be secondary to prerenal causes. Today AlT is 118 AsT 84 and alkaline phosphatase is 40. Continued to improve. (3) Nausea & vomiting Qualifiers: Vomiting type: unspecified Vomiting Intractability: non-intractable Qualified Code(s): R11.2 - Nausea with vomiting, unspecified Is this a current diagnosis for this admission?: Yes Plan: Improving. Most likely due to ANGEL and rhabdomyolysis. Continue supportive measures. Electrolytes and replace as needed. 09/05/2018-patient came in with nausea and vomiting's most likely secondary to acute kidney injury and rhabdomyolysis though symptoms are resolved now. (4) Dehydration Is this a current diagnosis for this admission?: Yes (5) Hyponatremia Is this a current diagnosis for this admission?: Yes Plan: 09/05/2018-latest serum sodium is 140 hyponatremia is resolved. - Time Time Spent with patient: 15-24 minutes Medications reviewed and adjusted accordingly: Yes Anticipated discharge: Home
--- NOTE | 2018-09-05 11:30 | PDOC PROGRESS REPORT ---
Subjective Progress Note for:: 09/05/18 Reason For Visit: Patient is seen today. Chart review was done and discussions were done with Dr. Clements who was covering last week. Patient is admitted with acute kidney injury secondary to acute rhabdomyolysis and necessitated one dialysis treatment on the seventh. Since then he has been doing very well. He is making really good amounts of urine and seems to be going to the diuretic phase of ATN recovery of the moment. He denies any history of chest pain or shortness of breath. No orthostasis. His urine is normal color now. He has noticed still some persistent swelling of his ankles and his hands but not of his face. Labs and medications were reviewed with the patient. His admission CPK was 30,000+ and now dropped down to 2970. He has got a right femoral dialysis catheter which is intact with no exit site infection. Physical Exam Vital Signs: Temp Pulse Resp BP Pulse Ox 98.5 F 50 L 16 154/94 H 100 09/05/18 07:46 09/05/18 07:46 09/05/18 07:46 09/05/18 07:46 09/05/18 07:46 Intake & Output 09/04/18 09/05/18 09/06/18 06:59 06:59 06:59 Intake Total 2000 2280 Output Total 1395 3475 Balance 605 -1195 Weight 95.3 kg 95.3 kg General appearance: PRESENT: no acute distress Respiratory exam: PRESENT: clear to auscultation boy. ABSENT: crackles Cardiovascular exam: PRESENT: +S1, +S2. ABSENT: RRR GI/Abdominal exam: PRESENT: soft, tenderness - -sore. ABSENT: ascites, distended, guarding, mass Extremities exam: PRESENT: pedal edema Neurological exam: PRESENT: alert, awake, oriented to person, oriented to place, oriented to time Psychiatric exam: PRESENT: appropriate affect Skin exam: ABSENT: cyanosis, erythema, mottled, rash Results Laboratory Results: 09/05/18 04:51 09/05/18 04:51 09/05/18 09/05/18 04:51 04:51 WBC 6.3 RBC 3.70 L Hgb 11.6 L Hct 33.1 L MCV 90 MCH 31.4 MCHC 35.0 RDW 12.9 Plt Count 157 Seg Neutrophils % 66.3 Lymphocytes % 20.4 Monocytes % 9.3 Eosinophils % 3.1 Basophils % 0.9 Absolute Neutrophils 4.2 Absolute Lymphocytes 1.3 Absolute Monocytes 0.6 Absolute Eosinophils 0.2 Absolute Basophils 0.1 Sodium 145.0 Potassium 4.1 Chloride 116 H Carbon Dioxide 21 L Anion Gap 8 BUN 34 H Creatinine 4.16 H Est GFR ( Amer) 19 L Est GFR (Non-Af Amer) 16 L Glucose 86 Calcium 8.6 Phosphorus 4.0 Magnesium 1.7 Total Bilirubin 0.5 AST 84 H ALT 118 H Alkaline Phosphatase 40 Total Protein 5.3 L Albumin 3.0 L 08/30/18 08/30/18 08/30/18 16:18 18:30 18:30 Creatine Kinase 80794 H 229874 H CK-MB (CK-2) 24.40 H Troponin I 0.048 08/31/18 08/31/18 08/31/18 01:03 01:03 07:05 Creatine Kinase 97203 H 34813 H CK-MB (CK-2) 20.40 H Troponin I 0.036 08/31/18 09/01/18 09/02/18 07:05 04:21 05:12 Creatine Kinase 85348 H 99033 H CK-MB (CK-2) 16.70 H Troponin I 0.026 09/03/18 09/04/18 09/05/18 05:22 04:51 04:51 Creatine Kinase 65053 H 6641 H 2970 H CK-MB (CK-2) Troponin I Impressions: Abdomen Ultrasound 08/30/18 00:00 IMPRESSION: Accentuation the portal triads throughout the liver parenchyma, raising the possibility of acute hepatitis. However, the liver does not appear significantly enlarged. Correlate. Echogenic right kidney, raising the possibility of medical renal disease. copyright 2010 [employer]- All Rights Reserved Assessment & Plan - Diagnosis (1) ANGEL (acute kidney injury) Is this a current diagnosis for this admission?: Yes Plan: Current creatinine is 4.1 after peaking at 8.1. Is nonoliguric. Electrolites are stable including his sodium potassium and acidosis is also improving. Continue current lines of management. Discussed with the patient that he could go home once his creatinine was below 2 and then follow me as an outpatient with labs. Advised him about proper hydration in the future. Advised him to avoid NSAIDs as well. (2) Hypocalcemia Is this a current diagnosis for this admission?: Yes (3) Metabolic acidosis Is this a current diagnosis for this admission?: Yes Plan: Current CO2 is 21. Monitor. (4) Rhabdomyolysis Qualifiers: Rhabdomyolysis type: non-traumatic Qualified Code(s): M62.82 - Rhabdomyolysis Is this a current diagnosis for this admission?: Yes Plan: Current CPK is 2097 from a peak of 30 K +. Monitor. (5) Hypertension Plan: Patient is currently hypertension on the low-dose of amlodipine. Monitor. Hopefully he will recover from his hypertension as his kidney injury resolves. The other thing to monitor his amlodipine and the swelling of his hands and feet.
[2018-09-05] MEDS: HYDRALAZINE HCL 10 MG TABLET PO PRN (16:35)
[2018-09-05] MEDS: CYCLOBENZAPRINE HCL 10 MG TABLET PO SCH (21:16)
[2018-09-05] MEDS: TRAZODONE HCL 50 MG TABLET PO PRN (21:17)
[2018-09-06] MEDS: ACETAMINOPHEN 325 MG TABLET PO PRN ×2 (02:16→21:09)
[2018-09-06 05:50] LABS: ABSOLUTE BASOPHILS # (AUTO) 0.1 10^3/uL (0.0-0.2); ABSOLUTE EOSINOPHILS # (AUTO) 0.2 10^3/uL (0.0-0.6); ABSOLUTE LYMPHOCYTES (AUTO) 1.2 10^3/uL (0.5-4.7); ABSOLUTE MONOCYTES (AUTO) 0.5 10^3/uL (0.1-1.4); ABSOLUTE NEUT (AUTO) 3.9 10^3/uL (1.7-8.2); BASOPHILS % (AUTO) 0.9 % (0-2); EOSINOPHILS % (AUTO) 3.4 % (0-6); HEMATOCRIT 33.1 % (37.9-51.0); HEMOGLOBIN 11.7 g/dL (13.5-17.0); LYMPHOCYTES % (AUTO) 20.8 % (13-45); MEAN CORPUSCULAR HEMOGLOBIN 31.4 pg (27.0-33.4); MEAN CORPUSCULAR HGB CONC 35.2 g/dL (32.0-36.0); MEAN CORPUSCULAR VOLUME 89 fl (80-97); MONOCYTES % (AUTO) 8.8 % (3-13); PLATELET COUNT 165 10^3/uL (150-450); RED BLOOD COUNT 3.72 10^6/uL (4.35-5.55); RED CELL DISTRIBUTION WIDTH 12.6 % (11.5-14.0); SEGMENTED NEUTROPHILS % (AUTO) 66.1 % (42-78); TOTAL CELLS COUNTED % (AUTO) 100 %; WHITE BLOOD COUNT 5.9 10^3/uL (4.0-10.5)
[2018-09-06 06:25] LABS: ALANINE AMINOTRANSFERASE 101 U/L (21-72); ALBUMIN 3.1 g/dL (3.5-5.0); ALKALINE PHOSPHATASE 43 U/L (38-126); ANION GAP 9 (5-19); ASPARTATE AMINO TRANSFERASE 58 U/L (17-59); BILIRUBIN,DIRECT 0.3 mg/dL (0.0-0.4); BILIRUBIN,TOTAL 0.7 mg/dL (0.2-1.3); BLOOD UREA NITROGEN 27 mg/dL (7-20); CALCIUM 8.7 mg/dL (8.4-10.2); CARBON DIOXIDE 23 mmol/L (22-30); CHLORIDE 112 mmol/L (98-107); CREATINE KINASE 1448 U/L (55-170); GLUCOSE 83 mg/dL (75-110); POTASSIUM 3.9 mmol/L (3.6-5.0); SODIUM 143.5 mmol/L (137-145); TOTAL PROTEIN 5.5 g/dL (6.3-8.2)
[2018-09-06] MEDS: NORMAL SALINE 1000 ML 1,000 ML IV PRN ×2 (07:51→11:17)
--- NOTE | 2018-09-06 08:24 | PDOC CONSULTATION ---
Consultation Consult Date: 09/06/18 Provider Consulted: KEILY WATSON Consult reason:: abnormal LFT History of Present Illness Admission Date/PCP: 08/30/18 18:17 History of Present Illness: EMILIE CHAVEZ JR is a 43 year old male I am asked to see this patient for abnormal LFT's and possibility of Hepatitis patient however was admitted for rhabdomyolysis had elevated CPK, and elevated AST and ALT patient is being seen by Nephrology CPK's have been trending down along with AST and ALT there was an ultrasound that was done AST and ALT are not specific to the liver they can be spilled in cases of severe rhabdomyolysis not due to any injury of the liver but rather due to injury of the muscle at this point since improving no further work up needs to be done Past Medical History Cardiac Medical History: Reports: None Pulmonary Medical History: Reports: None Neurological Medical History: Reports: None Endocrine Medical History: Reports: None Malignancy Medical History: Reports: None GI Medical History: Reports: None Musculoskeltal Medical History: Reports: Other - Right shoulder repair right bicep repair Psychiatric Medical History: Reports: None Traumatic Medical History: Reports: None Past Surgical History Past Surgical History: Reports: Orthopedic Surgery - R shoulder/r bicep Social History Lives with: Family Smoking Status: Never Smoker Frequency of Alcohol Use: Occasional Hx Recreational Drug Use: No Drugs: None - Advance Directive Resuscitation Status: Full Code Family History Family History: Reviewed & Not Pertinent Parental Family History Reviewed: Yes Children Family History Reviewed: Unknown Sibling(s) Family History Reviewed.: Unknown Medication/Allergy Home Medications: Cyclobenzaprine HCl [Flexeril 10 mg Tablet] 10 mg PO QHS 08/30/18 Naproxen [Naprosyn] 500 mg PO QHS 08/30/18 Allergies/Adverse Reactions: No Known Allergies Allergy (Verified 08/30/18 17:58) Review of Systems Constitutional: ABSENT: fever(s), headache(s), night sweats Eyes: ABSENT: visual disturbances Ears: ABSENT: hearing changes Nose, Mouth, and Throat: ABSENT: mouth pain, sore throat Cardiovascular: ABSENT: edema, orthropnea Respiratory: ABSENT: dyspnea, hemoptysis Gastrointestinal: ABSENT: dysphagia, hematemesis, hematochezia, melena Genitourinary: ABSENT: dysuria, hematuria Musculoskeletal: PRESENT: muscle weakness Integumentary: ABSENT: pruritus Neurological: ABSENT: syncope, tingling, tremor(s), vertigo Endocrine: ABSENT: polydipsia, polyphagia, polyuria Hematologic/Lymphatic: ABSENT: easy bruising Physical Exam Vital Signs: Temp Pulse Resp BP Pulse Ox 98.3 F 45 L 16 141/90 H 100 09/06/18 07:58 09/06/18 07:58 09/06/18 07:58 09/06/18 07:58 09/06/18 07:58 Intake & Output 09/05/18 09/06/18 09/07/18 06:59 06:59 06:59 Intake Total 2280 4730 Output Total 3475 4550 Balance -1195 180 Weight 95.3 kg 99.3 kg General appearance: PRESENT: no acute distress, well-developed, well-nourished Head exam: PRESENT: atraumatic, normocephalic Eye exam: PRESENT: EOMI, PERRLA. ABSENT: nystagmus, periorbital swelling, scleral icterus Mouth exam: PRESENT: moist, neck supple Throat exam: ABSENT: tonsillar exudate, tonsillogmegaly Neck exam: ABSENT: meningismus, tenderness, thyromegaly Respiratory exam: PRESENT: symmetrical, unlabored. ABSENT: tachypnea, wheezes Cardiovascular exam: PRESENT: RRR, +S1, +S2 GI/Abdominal exam: PRESENT: soft. ABSENT: rebound, rigid, tenderness Extremities exam: ABSENT: joint swelling, pedal edema Neurological exam: PRESENT: oriented to time, oriented to situation, CN II-XII grossly intact Focused psych exam: ABSENT: restlessness Skin exam: PRESENT: normal color. ABSENT: mottled, pallor, urticaria, vesicles Results Laboratory Results: 09/06/18 05:00 09/06/18 05:00 09/06/18 09/06/18 05:00 05:00 WBC 5.9 RBC 3.72 L Hgb 11.7 L Hct 33.1 L MCV 89 MCH 31.4 MCHC 35.2 RDW 12.6 Plt Count 165 Seg Neutrophils % 66.1 Lymphocytes % 20.8 Monocytes % 8.8 Eosinophils % 3.4 Basophils % 0.9 Absolute Neutrophils 3.9 Absolute Lymphocytes 1.2 Absolute Monocytes 0.5 Absolute Eosinophils 0.2 Absolute Basophils 0.1 Sodium 143.5 Potassium 3.9 Chloride 112 H Carbon Dioxide 23 Anion Gap 9 BUN 27 H Creatinine 3.12 H Est GFR ( Amer) 26 L Est GFR (Non-Af Amer) 22 L Glucose 83 Calcium 8.7 Magnesium 1.4 L Total Bilirubin 0.7 AST 58 ALT 101 H Alkaline Phosphatase 43 Total Protein 5.5 L Albumin 3.1 L 08/30/18 08/30/18 08/30/18 16:18 18:30 18:30 Creatine Kinase 37949 H 317780 H CK-MB (CK-2) 24.40 H Troponin I 0.048 08/31/18 08/31/18 08/31/18 01:03 01:03 07:05 Creatine Kinase 61715 H 96517 H CK-MB (CK-2) 20.40 H Troponin I 0.036 08/31/18 09/01/18 09/02/18 07:05 04:21 05:12 Creatine Kinase 35684 H 33360 H CK-MB (CK-2) 16.70 H Troponin I 0.026 09/03/18 09/04/18 09/05/18 05:22 04:51 04:51 Creatine Kinase 04226 H 6641 H 2970 H CK-MB (CK-2) Troponin I 09/06/18 05:00 Creatine Kinase 1448 H CK-MB (CK-2) Troponin I Impressions: Abdomen Ultrasound 08/30/18 00:00 IMPRESSION: Accentuation the portal triads throughout the liver parenchyma, raising the possibility of acute hepatitis. However, the liver does not appear significantly enlarged. Correlate. Echogenic right kidney, raising the possibility of medical renal disease. copyright 2010 [employer]- All Rights Reserved Assessment & Plan - Diagnosis (1) Elevated liver enzymes Is this a current diagnosis for this admission?: Yes Plan: elevated AST and ALT no likely due to liver injury since there is rhabdomylosis ultrasound does not show anything specific his AST and ALT have improved in correlation with his CPK's continue current management no further work up needs to be done follow up as outpatient - Time Time Spent: 50 to 70 Minutes
[2018-09-06] MEDS ORDERED: MAGNESIUM SULFATE/D5W 1 GM/100 ML RTUPB IV ONE (09:30)
[2018-09-06] MEDS: ENOXAPARIN SODIUM INJ 30 MG/0.3 ML DISP.SYRIN SUBCUT SCH (09:38)
[2018-09-06] MEDS: CALCIUM CARBONATE 500 MG TABLET PO SCH (09:51)
[2018-09-06] MEDS: AMLODIPINE BESYLATE 5 MG TABLET PO SCH (09:51)
[2018-09-06] MEDS: FAMOTIDINE 20 MG TABLET PO SCH ×2 (09:52→21:10)
--- NOTE | 2018-09-06 10:53 | PDOC PROGRESS REPORT ---
Subjective Progress Note for:: 09/06/18 Reason For Visit: Patient seen this morning. He is doing better. He is walking and ambulating. He has noticed some edema of his legs and hands but otherwise doing well. No complaints of chest pain shortness of breath. Labs and medications were reviewed with the patient. Slightly low magnesium 1.4 and has been begun on magnesium replacement. Good amounts of urine without any hematuria. Physical Exam Vital Signs: Temp Pulse Resp BP Pulse Ox 98.3 F 45 L 16 141/90 H 100 09/06/18 07:58 09/06/18 07:58 09/06/18 07:58 09/06/18 07:58 09/06/18 07:58 Intake & Output 09/05/18 09/06/18 09/07/18 06:59 06:59 06:59 Intake Total 2280 4730 Output Total 3475 4550 Balance -1195 180 Weight 95.3 kg 99.3 kg General appearance: PRESENT: no acute distress Respiratory exam: PRESENT: clear to auscultation boy. ABSENT: crackles Cardiovascular exam: PRESENT: +S1, +S2. ABSENT: RRR GI/Abdominal exam: PRESENT: soft, tenderness - -sore. ABSENT: ascites, distended, guarding, mass Extremities exam: PRESENT: pedal edema Neurological exam: PRESENT: alert, awake, oriented to person, oriented to place, oriented to time Results Laboratory Results: 09/06/18 05:00 09/06/18 05:00 09/06/18 09/06/18 05:00 05:00 WBC 5.9 RBC 3.72 L Hgb 11.7 L Hct 33.1 L MCV 89 MCH 31.4 MCHC 35.2 RDW 12.6 Plt Count 165 Seg Neutrophils % 66.1 Lymphocytes % 20.8 Monocytes % 8.8 Eosinophils % 3.4 Basophils % 0.9 Absolute Neutrophils 3.9 Absolute Lymphocytes 1.2 Absolute Monocytes 0.5 Absolute Eosinophils 0.2 Absolute Basophils 0.1 Sodium 143.5 Potassium 3.9 Chloride 112 H Carbon Dioxide 23 Anion Gap 9 BUN 27 H Creatinine 3.12 H Est GFR ( Amer) 26 L Est GFR (Non-Af Amer) 22 L Glucose 83 Calcium 8.7 Magnesium 1.4 L Total Bilirubin 0.7 AST 58 ALT 101 H Alkaline Phosphatase 43 Total Protein 5.5 L Albumin 3.1 L 08/30/18 08/30/18 08/30/18 16:18 18:30 18:30 Creatine Kinase 43724 H 705067 H CK-MB (CK-2) 24.40 H Troponin I 0.048 08/31/18 08/31/18 08/31/18 01:03 01:03 07:05 Creatine Kinase 37802 H 29937 H CK-MB (CK-2) 20.40 H Troponin I 0.036 08/31/18 09/01/18 09/02/18 07:05 04:21 05:12 Creatine Kinase 24033 H 46094 H CK-MB (CK-2) 16.70 H Troponin I 0.026 09/03/18 09/04/18 09/05/18 05:22 04:51 04:51 Creatine Kinase 13974 H 6641 H 2970 H CK-MB (CK-2) Troponin I 09/06/18 05:00 Creatine Kinase 1448 H CK-MB (CK-2) Troponin I Impressions: Abdomen Ultrasound 08/30/18 00:00 IMPRESSION: Accentuation the portal triads throughout the liver parenchyma, raising the possibility of acute hepatitis. However, the liver does not appear significantly enlarged. Correlate. Echogenic right kidney, raising the possibility of medical renal disease. copyright 2011 [employer]- All Rights Reserved Assessment & Plan - Diagnosis (1) ANGEL (acute kidney injury) Is this a current diagnosis for this admission?: Yes Plan: Current creatinine is 3.1 after peaking at 8.1. Is nonoliguric. Electrolites are stable including his sodium potassium and acidosis is also improving. Mildly low magnesium and begun on replacements. Got some evidences of fluid and will start him on low-dose of p.o. Lasix. Continue current lines of management. Discussed with the patient that he could go home once his creatinine was close to 2 and then follow me as an outpatient with labs. Advised him about proper hydration in the future. Advised him to avoid NSAIDs as well. (2) Hypocalcemia Is this a current diagnosis for this admission?: Yes Plan: Stable. (3) Metabolic acidosis Is this a current diagnosis for this admission?: Yes Plan: Resolved. (4) Rhabdomyolysis Qualifiers: Rhabdomyolysis type: non-traumatic Qualified Code(s): M62.82 - Rhabdomyolysis Is this a current diagnosis for this admission?: Yes Plan: Moving with dropping CPK. Continue current lines of management but cut back fluids to 75 cc an hour. (5) Hypertension Plan: Elevated. Making a switch from amlodipine to doxazosin.
[2018-09-06] MEDS: FUROSEMIDE 20 MG TABLET PO SCH (11:17)
[2018-09-06] MEDS: HYDRALAZINE HCL 10 MG TABLET PO PRN ×2 (12:00→21:11)
--- NOTE | 2018-09-06 12:23 | PDOC PROGRESS REPORT ---
Subjective Progress Note for:: 09/06/18 Subjective:: EMILIE CHAVEZ JR is a 43 year old male with history of hernia repair, right shoulder surgery, right bicep repair came to the emergency room with complaints of nausea and vomitings decreased urinary output since yesterday. 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 2 times may be less than 10 cc whole day. After the workout went home try to urinate less than 5 cc of brownish tinge colored urine came out and he tried to eat unable to eat even a small piece of banana and he threw back up decided to came to the emergency room for further evaluation. In the emergency room work-up was done found to have a creatinine of 4.07 given 1 L of normal saline IV bolus and found to have elevated LFTs medical consult was called for admission. Patient denies any past medical history except for the small surgical procedures and denies of naproxyn. denies fever denies chest pains cough headaches diarrhea. Complains of slight pain in the right upper quadrant. 09/02/2018. No acute events overnight. Patient still complaining of generalized soreness, mild nausea, denies any vomiting, denies any uremic symptoms, p.o. tolerant, having normal bowel and bladder movements. Denies any decrease in her urine output. Unfortunately his creatinine is increasing and he is becoming more acidotic nephrology has started him on [employer] today. Denies any fever, chest pain, shortness of breath, chills, vomiting, abdominal pain or any urinary symptoms. WBC 5.4, hemoglobin 12.1, platelets 117, sodium 136, bicarb 16, creatinine 8.11, 7.5, albumin 2.8. AST 320, [place] [address] 09/03/2018. No acute events overnight. Status post hemodialysis 09/02/2018. Generalized weakness and nausea improving. Complaining of upper extremity swelling. Denies any fever, chills, nausea, vomiting, diarrhea, constipation or any urinary symptoms. 09/04/2018. No acute events overnight, complaining of generalized weakness, ambulatory, normal bowel and bladder movement, p.o. tolerant, complaining of mild bilateral hand swelling, denies any fever, shortness of breath, chest pain, nausea, vomiting, diarrhea, constipation or any urinary symptoms. Sodium 142.2, potassium 4.0, bicarb 22, BUN 41, creatinine 5.5, CK 6641. AST 138, ALT 145, albumin 3.2. Ca 8.4 09/06/2018: o acute events overnight, complaining of generalized weakness, ambulatory, normal bowel and bladder movement, p.o. tolerant, complaining of mild bilateral hand swelling, denies any fever, shortness of breath, chest pain, nausea, vomiting, diarrhea, constipation or any urinary symptoms. 09/06/2018:SBP 990679, T-max 98.3, HR 50s, RR 16, SPO2 100% RA. WBC 5.9, hemoglobin 11.7, platelets 165, sodium 143, potassium 3.9, bicarb 23, creatinine 3.12, AST 58, ALT 101, CK 1448 magnesium 1.4. If Creatinine < 2, will dc home tomorrow. Reason For Visit: ACUTE RENAL FAILURE Physical Exam Vital Signs: Temp Pulse Resp BP Pulse Ox 97.9 F 48 L 16 174/91 H 100 09/06/18 11:22 09/06/18 11:22 09/06/18 11:22 09/06/18 11:22 09/06/18 11:22 Intake & Output 09/05/18 09/06/18 09/07/18 06:59 06:59 06:59 Intake Total 2280 4730 531 Output Total 3475 4550 Balance -1195 180 531 Weight 95.3 kg 99.3 kg General appearance: PRESENT: no acute distress, well-developed, well-nourished Head exam: PRESENT: atraumatic, normocephalic Eye exam: PRESENT: conjunctiva pink, EOMI, PERRLA. ABSENT: scleral icterus Ear exam: PRESENT: normal external ear exam Mouth exam: PRESENT: moist, tongue midline Neck exam: ABSENT: carotid bruit, JVD, lymphadenopathy, thyromegaly Respiratory exam: PRESENT: clear to auscultation boy. ABSENT: rales, rhonchi, wheezes Cardiovascular exam: PRESENT: RRR. ABSENT: diastolic murmur, rubs, systolic murmur Pulses: PRESENT: normal dorsalis pedis pul Vascular exam: PRESENT: normal capillary refill GI/Abdominal exam: PRESENT: normal bowel sounds, soft. ABSENT: distended, guarding, mass, organolmegaly, rebound, tenderness Rectal exam: PRESENT: deferred Extremities exam: PRESENT: full ROM. ABSENT: calf tenderness, clubbing, pedal edema Neurological exam: PRESENT: alert, awake, oriented to person, oriented to place, oriented to time, oriented to situation, CN II-XII grossly intact. ABSENT: motor sensory deficit Psychiatric exam: PRESENT: appropriate affect, normal mood. ABSENT: homicidal ideation, suicidal ideation Skin exam: PRESENT: dry, intact, warm. ABSENT: cyanosis, rash Results Laboratory Results: 09/06/18 05:00 09/06/18 05:00 09/06/18 09/06/18 05:00 05:00 WBC 5.9 RBC 3.72 L Hgb 11.7 L Hct 33.1 L MCV 89 MCH 31.4 MCHC 35.2 RDW 12.6 Plt Count 165 Seg Neutrophils % 66.1 Lymphocytes % 20.8 Monocytes % 8.8 Eosinophils % 3.4 Basophils % 0.9 Absolute Neutrophils 3.9 Absolute Lymphocytes 1.2 Absolute Monocytes 0.5 Absolute Eosinophils 0.2 Absolute Basophils 0.1 Sodium 143.5 Potassium 3.9 Chloride 112 H Carbon Dioxide 23 Anion Gap 9 BUN 27 H Creatinine 3.12 H Est GFR ( Amer) 26 L Est GFR (Non-Af Amer) 22 L Glucose 83 Calcium 8.7 Magnesium 1.4 L Total Bilirubin 0.7 AST 58 ALT 101 H Alkaline Phosphatase 43 Total Protein 5.5 L Albumin 3.1 L 08/30/18 08/30/18 08/30/18 16:18 18:30 18:30 Creatine Kinase 96877 H 948645 H CK-MB (CK-2) 24.40 H Troponin I 0.048 08/31/18 08/31/18 08/31/18 01:03 01:03 07:05 Creatine Kinase 59291 H 54070 H CK-MB (CK-2) 20.40 H Troponin I 0.036 08/31/18 09/01/18 09/02/18 07:05 04:21 05:12 Creatine Kinase 67393 H 03993 H CK-MB (CK-2) 16.70 H Troponin I 0.026 09/03/18 09/04/18 09/05/18 05:22 04:51 04:51 Creatine Kinase 96294 H 6641 H 2970 H CK-MB (CK-2) Troponin I 09/06/18 05:00 Creatine Kinase 1448 H CK-MB (CK-2) Troponin I Impressions: Abdomen Ultrasound 08/30/18 00:00 IMPRESSION: Accentuation the portal triads throughout the liver parenchyma, raising the possibility of acute hepatitis. However, the liver does not appear significantly enlarged. Correlate. Echogenic right kidney, raising the possibility of medical renal disease. copyright 2010 [employer]- All Rights Reserved Assessment and Plan - Diagnosis (1) ANGEL (acute kidney injury) Is this a current diagnosis for this admission?: Yes Plan: Nonoliguric. Improving. Status post HD 09/02/2018. Has mild bilateral hand swelling. Denies any uremic symptoms except for mild nausea. 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 Patient may have had some kind of CKD as PTH 136, renal ultrasound positive for chronic medical disease. 09/06/2018:Sodium 143, potassium 3.9, bicarb 23, creatinine 3.12, AST 58, ALT 101, CK 1448 magnesium 1.4. 09/04/2018: Sodium 142.2, potassium 4.0, bicarb 22, BUN 41, creatinine 5.5, CK 6641. AST 138, ALT 145, albumin 3.2. Ca 8.4 09/03/2018: Sodium 138.3, potassium 4.1, bicarb 21, BUN 44, creatinine 6.2. AST 223, AST 160, alk phos 40, CK 15,790 Th1 36.8. 09/02/2018. Sodium renal ultrasound bicarb 16, creatinine 8.11, 7.5, albumin 2.8. AST 320, [place] 172[place] [address] [place] [address]. 09/01/2018: Sodium 133.5, bicarb 18, creatinine 7.53 up from 4.09 on admission, corrected calcium 8.3 , [place] [address] down from 159033 Decrease NS to 75 cc/h. Monitor volume status, electrolytes, and vitals. Continue prerenal diet. Nephrology on board. (2) Rhabdomyolysis Qualifiers: Rhabdomyolysis type: non-traumatic Qualified Code(s): M62.82 - Rhabdomyolysis Is this a current diagnosis for this admission?: Yes Plan: Due to intense workout session at work. 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 Continue IV fluids guided by volume status and vitals. 09/06/2018: Sodium 143, potassium 3.9, bicarb 23, creatinine 3.12, AST 58, ALT 101, CK 1448 magnesium 1.4. 09/04/2018: Sodium 142.2, potassium 4.0, bicarb 22, BUN 41, creatinine 5.5, CK 6641. AST 138, ALT 145, albumin 3.2. Ca 8.4 Strict in and out. (3) Hypocalcemia Is this a current diagnosis for this admission?: Yes Plan: Improving. Likely due to ANGEL and liver injury due to rhabdomyolysis. 09/06/2018:Sodium 143, potassium 3.9, bicarb 23, creatinine 3.12, AST 58, ALT 101, CK 1448 magnesium 1.4. 09/04/2018. Sodium 142.2, potassium 4.0, bicarb 22, BUN 41, creatinine 5.5, CK 6641. AST 138, ALT 145, albumin 3.2. Ca 8.4 Continue calcium supplement. CMP tomorrow. (4) Metabolic acidosis Is this a current diagnosis for this admission?: Yes Plan: Resolved. Most likely due to ANGEL caused by rhabdomyolysis. 09/06/2018: Sodium 143, potassium 3.9, bicarb 23, creatinine 3.12, AST 58, ALT 101, CK 1448 magnesium 1.4. 09/04/2009: Sodium 142.2, potassium 4.0, bicarb 22, BUN 41, creatinine 5.5, CK 6641. 09/03/2018: bicarb 21, BUN 44, creatinine 6.2. AST 223, AST 160, alk phos 40, CK 15,790 Th1 36.8. 09/02/2018: bicarb 16, creatinine 8.11, Ca 7.5, albumin 2.8. AST 320, [place] 172[place] [address] 09/01/2018: bicarb 18,[place] [address] down from 119813. Continue treatment for the underlying causes. (5) Elevated liver enzymes Is this a current diagnosis for this admission?: Yes Plan: Improving. Likely due to rhabdomyolysis patient denies any history of alcohol intake, history of alcoholic hepatitis. 09/06/2018:AST 58, ALT 101, CK 1448 magnesium 1.4. 09/04/2018. AST 138, ALT 145, albumin 3.2. Ca 8.4 09/03/2018: AST 223, AST 160, alk phos 40, CK 15,790 Th1 36.8. 09/02/2018: AST 320, [place] [address] 09/01/2018: AST 432 ALT 176 08/30/2018. Abdominal ultrasound. Accentuation of the portal triads throughout the liver parenchyma, raising the possibility of acute hepatitis. However the liver does not appear significantly enlarged. LFTs for tomorrow. Hepatitis panel negative. Gastroenterology consulted, no recs at this point. Please refer note. (6) Hypomagnesemia Is this a current diagnosis for this admission?: Yes Plan: Replaced. Mg level tomorrow.
--- NOTE | 2018-09-06 14:47 | Progress Note ---
Provider Note Provider Note: patient admitted for rhabdomyolysis even on admission there was only elevation of AST and ALT the total bili, alk phos have all been negative and continued to be normal on review of today's note from the Hospitalist, several issues needs to be clarified: 1) AST and ALT are not specific to the liver 2) I do not believe that there was any " liver injury" as noted by the Hospitalist 3) ultrasound sound findings of " prominent portal triads" are not indicative of injury 4) the is no evidence of alcoholic hepatitis, if that were to be true, then there would be a persistent elevation of the T Bili. 5) amendments needs to be made by the Hospitalist to correct these statements.
[2018-09-06] MEDS: CYCLOBENZAPRINE HCL 10 MG TABLET PO SCH (21:10)
[2018-09-06] MEDS: DOXAZOSIN MESYLATE 1 MG TABLET PO SCH (21:10)
[2018-09-07] MEDS: NORMAL SALINE 1000 ML 1,000 ML IV PRN (01:10)
[2018-09-07 06:16] LABS: ABSOLUTE BASOPHILS # (AUTO) 0.1 10^3/uL (0.0-0.2); ABSOLUTE EOSINOPHILS # (AUTO) 0.2 10^3/uL (0.0-0.6); ABSOLUTE LYMPHOCYTES (AUTO) 1.4 10^3/uL (0.5-4.7); ABSOLUTE MONOCYTES (AUTO) 0.5 10^3/uL (0.1-1.4); BASOPHILS % (AUTO) 1.2 % (0-2); EOSINOPHILS % (AUTO) 4.4 % (0-6); HEMATOCRIT 33.9 % (37.9-51.0); LYMPHOCYTES % (AUTO) 27.1 % (13-45); MEAN CORPUSCULAR HEMOGLOBIN 31.4 pg (27.0-33.4); MEAN CORPUSCULAR HGB CONC 35.5 g/dL (32.0-36.0); MEAN CORPUSCULAR VOLUME 88 fl (80-97); MONOCYTES % (AUTO) 9.7 % (3-13); PLATELET COUNT 208 10^3/uL (150-450); RED BLOOD COUNT 3.83 10^6/uL (4.35-5.55); RED CELL DISTRIBUTION WIDTH 12.5 % (11.5-14.0); SEGMENTED NEUTROPHILS % (AUTO) 57.6 % (42-78); TOTAL CELLS COUNTED % (AUTO) 100 %; WHITE BLOOD COUNT 5.1 10^3/uL (4.0-10.5)
[2018-09-07 06:45] LABS: ALANINE AMINOTRANSFERASE 84 U/L (21-72); ALBUMIN 3.2 g/dL (3.5-5.0); ALKALINE PHOSPHATASE 44 U/L (38-126); ANION GAP 8 (5-19); ASPARTATE AMINO TRANSFERASE 41 U/L (17-59); BILIRUBIN,DIRECT 0.3 mg/dL (0.0-0.4); BILIRUBIN,TOTAL 0.6 mg/dL (0.2-1.3); BLOOD UREA NITROGEN 24 mg/dL (7-20); CALCIUM 8.5 mg/dL (8.4-10.2); CARBON DIOXIDE 24 mmol/L (22-30); CHLORIDE 110 mmol/L (98-107); CREATINE KINASE 836 U/L (55-170); GLUCOSE 86 mg/dL (75-110); POTASSIUM 3.9 mmol/L (3.6-5.0); SODIUM 142.4 mmol/L (137-145); TOTAL PROTEIN 5.7 g/dL (6.3-8.2)
[2018-09-07] MEDS ORDERED: MAGNESIUM SULFATE/D5W 1 GM/100 ML RTUPB IV ONE (08:48)
[2018-09-07] MEDS: CALCIUM CARBONATE 500 MG TABLET PO SCH (09:51)
[2018-09-07] MEDS: FAMOTIDINE 20 MG TABLET PO SCH (09:52)
[2018-09-07] MEDS: FUROSEMIDE 20 MG TABLET PO SCH (09:52)
[2018-09-07] MEDS: ENOXAPARIN SODIUM INJ 30 MG/0.3 ML DISP.SYRIN SUBCUT SCH (09:56)
[2018-09-07] MEDS ORDERED: MAGNESIUM OXIDE 400 MG TABLET PO SCH (10:00)
[2018-09-07] MEDS ORDERED: AMLODIPINE BESYLATE 5 MG TABLET PO SCH (11:00)
[2018-09-07] MEDS: DOXAZOSIN MESYLATE 1 MG TABLET PO SCH (11:13)
[2018-09-07 15:08] VITALS: BP 158/78
--- NOTE | 2018-09-07 17:48 | PDOC PROGRESS REPORT ---
Subjective Progress Note for:: 09/07/18 Reason For Visit: Patient doing very well. Making good amounts of urine. Labs and electrolytes are stable but for mild hypomagnesemia which is being replaced intravenously at the moment. Patient very ambulatory and eager to go home. Eating very well with no history of nausea vomiting. Normal hematuria. Physical Exam Vital Signs: Temp Pulse Resp BP Pulse Ox 98.4 F 63 20 158/78 H 100 09/07/18 15:18 09/07/18 15:18 09/07/18 15:18 09/07/18 15:18 09/07/18 15:18 Intake & Output 09/06/18 09/07/18 09/08/18 06:59 06:59 06:59 Intake Total 4730 2081 1100 Output Total 4550 Balance 180 2081 1100 Weight 99.3 kg 99.4 kg General appearance: PRESENT: no acute distress Respiratory exam: PRESENT: clear to auscultation oby. ABSENT: crackles Cardiovascular exam: PRESENT: +S1, +S2. ABSENT: RRR GI/Abdominal exam: PRESENT: soft, tenderness - -sore. ABSENT: ascites, distende d, guarding, mass Extremities exam: PRESENT: pedal edema - Mild. Neurological exam: PRESENT: alert, awake, oriented to person, oriented to place, oriented to time Results Laboratory Results: 09/07/18 05:18 09/07/18 05:18 09/07/18 09/07/18 09/07/18 05:18 05:18 12:58 WBC 5.1 RBC 3.83 L Hgb 12.0 L Hct 33.9 L MCV 88 MCH 31.4 MCHC 35.5 RDW 12.5 Plt Count 208 Seg Neutrophils % 57.6 Lymphocytes % 27.1 Monocytes % 9.7 Eosinophils % 4.4 Basophils % 1.2 Absolute Neutrophils 3.0 Absolute Lymphocytes 1.4 Absolute Monocytes 0.5 Absolute Eosinophils 0.2 Absolute Basophils 0.1 Sodium 142.4 Potassium 3.9 Chloride 110 H Carbon Dioxide 24 Anion Gap 8 BUN 24 H Creatinine 2.42 H Est GFR ( Amer) 35 L Est GFR (Non-Af Amer) 29 L Glucose 86 Calcium 8.5 Magnesium 1.4 L 1.6 Total Bilirubin 0.6 AST 41 ALT 84 H Alkaline Phosphatase 44 Total Protein 5.7 L Albumin 3.2 L 08/30/18 08/30/18 08/30/18 16:18 18:30 18:30 Creatine Kinase 44563 H 120847 H CK-MB (CK-2) 24.40 H Troponin I 0.048 08/31/18 08/31/18 08/31/18 01:03 01:03 07:05 Creatine Kinase 20814 H 46382 H CK-MB (CK-2) 20.40 H Troponin I 0.036 08/31/18 09/01/18 09/02/18 07:05 04:21 05:12 Creatine Kinase 74348 H 58418 H CK-MB (CK-2) 16.70 H Troponin I 0.026 09/03/18 09/04/18 09/05/18 05:22 04:51 04:51 Creatine Kinase 06515 H 6641 H 2970 H CK-MB (CK-2) Troponin I 09/06/18 09/07/18 05:00 05:18 Creatine Kinase 1448 H 836 H CK-MB (CK-2) Troponin I Impressions: Abdomen Ultrasound 08/30/18 00:00 IMPRESSION: Accentuation the portal triads throughout the liver parenchyma, raising the possibility of acute hepatitis. However, the liver does not appear significantly enlarged. Correlate. Echogenic right kidney, raising the possibility of medical renal disease. copyright 2011 [employer]- All Rights Reserved Assessment & Plan - Diagnosis (1) ANGEL (acute kidney injury) Is this a current diagnosis for this admission?: Yes Plan: Resolving nicely. Slight stable but for mild hypomagnesemia which needs to be replaced. Discussed with hospitalist to send him home on magnesium replacements. Follow-up with me in my office in 10 to 14 days time with basic labs and magnesium. Discussed healthy diet with the patient. (2) Hypocalcemia Is this a current diagnosis for this admission?: Yes Plan: Stable. (3) Metabolic acidosis Is this a current diagnosis for this admission?: Yes (4) Rhabdomyolysis Qualifiers: Rhabdomyolysis type: non-traumatic Qualified Code(s): M62.82 - Rhabdomyolys is Is this a current diagnosis for this admission?: Yes Plan: Almost completely near resolved. (5) Hypertension Plan: Uncontrolled. Follow with me as an outpatient..
--- NOTE | 2018-09-24 15:24 | PDOC DISCHARGE SUMMARY ---
General - Admit/Disc Date/PCP Admission Date/Primary Care Provider: 08/30/18 18:17 Discharge Date: 09/07/18 - Discharge Diagnosis (1) ANGEL (acute kidney injury) Is this a current diagnosis for this admission?: Yes (2) Rhabdomyolysis Is this a current diagnosis for this admission?: Yes (3) Hypocalcemia Is this a current diagnosis for this admission?: Yes (4) Metabolic acidosis Is this a current diagnosis for this admission?: Yes (5) Elevated liver enzymes Is this a current diagnosis for this admission?: Yes (6) Hypomagnesemia Is this a current diagnosis for this admission?: Yes (7) Hypertension Is this a current diagnosis for this admission?: Yes - Additional Information Resuscitation Status: Full Code Discharge Diet: As Tolerated Discharge Activity: Activity As Tolerated Prescriptions: Amlodipine Besylate [Norvasc 5 mg Tablet] 5 mg PO DAILY 30 Days #30 tablet NS Calcium Carbonate [Os-Eligio 500 mg Tablet (Oyster-Shell)] 500 mg PO DAILY 30 Days #30 tablet Furosemide [Lasix 20 mg Tablet] 20 mg PO DAILY 5 Days #5 tablet Magnesium Oxide 400 mg PO BID 30 Days #60 tablet Home Medications: Cyclobenzaprine HCl [Flexeril 10 mg Tablet] 10 mg PO QHS 08/30/18 Naproxen [Naprosyn] 500 mg PO QHS 08/30/18 Amlodipine Besylate [Norvasc 5 mg Tablet] 5 mg PO DAILY 30 Days #30 tablet NS 09/07/18 Calcium Carbonate [Os-Eligio 500 mg Tablet (Oyster-Shell)] 500 mg PO DAILY 30 Days #30 tablet 09/07/18 Furosemide [Lasix 20 mg Tablet] 20 mg PO DAILY 5 Days #5 tablet 09/07/18 Magnesium Oxide 400 mg PO BID 30 Days #60 tablet 09/07/18 History of Present Illness History of Present Illness: EMILIE CHAVEZ JR is a 43 year old male with history of hernia repair, right shoulder surgery, right bicep repair came to the emergency room with complaints of nausea and vomitings decreased urinary output since yesterday. 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 2 times may be less than 10 cc whole day. After the workout went home try to urinate less than 5 cc of brownish tinge colored urine came out and he tried to eat unable to eat even a small piece of banana and he threw back up decided to came to the emergency room for further evaluation. In the emergency room work-up was done found to have a creatinine of 4.07 given 1 L of normal saline IV bolus and found to have elevated LFTs medical consult was called for admission. Patient denies any past medical history except for the small surgical procedures and denies of naproxyn. denies fever denies chest pains cough headaches diarrhea. Complains of slight pain in the right upper quadrant. 09/02/2018. No acute events overnight. Patient still complaining of generalized soreness, mild nausea, denies any vomiting, denies any uremic symptoms, p.o. tolerant, having normal bowel and bladder movements. Denies any decrease in her urine output. Unfortunately his creatinine is increasing and he is becoming more acidotic nephrology has started him on [employer] today. Denies any fever, chest pain, shortness of breath, chills, vomiting, abdominal pain or any urinary symptoms. WBC 5.4, hemoglobin 12.1, platelets 117, sodium 136, bicarb 16, creatinine 8.11, 7.5, albumin 2.8. AST 320, [place] 172, [place] [address] 09/03/2018. No acute events overnight. Status post hemodialysis 09/02/2018. Generalized weakness and nausea improving. Complaining of upper extremity swelling. Denies any fever, chills, nausea, vomiting, diarrhea, constipation or any urinary symptoms. 09/04/2018. No acute events overnight, complaining of generalized weakness, ambulatory, normal bowel and bladder movement, p.o. tolerant, complaining of mild bilateral hand swelling, denies any fever, shortness of breath, chest pain, nausea, vomiting, diarrhea, constipation or any urinary symptoms. Sodium 142.2, potassium 4.0, bicarb 22, BUN 41, creatinine 5.5, CK 6641. AST 138, ALT 145, albumin 3.2. Ca 8.4 09/06/2018: o acute events overnight, complaining of generalized weakness, ambulatory, normal bowel and bladder movement, p.o. tolerant, complaining of mild bilateral hand swelling, denies any fever, shortness of breath, chest pain, nausea, vomiting, diarrhea, constipation or any urinary symptoms. 09/06/2018:SBP 806867, T-max 98.3, HR 50s, RR 16, SPO2 100% RA. WBC 5.9, hemoglobin 11.7, platelets 165, sodium 143, potassium 3.9, bicarb 23, creatinine 3.12, AST 58, ALT 101, CK 1448 magnesium 1.4. If Creatinine < 2, will dc home tomorrow. Hospital Course Hospital Course: (1) ANGEL (acute kidney injury) Nonoliguric. Improving. Denies any uremic symptoms except for mild nausea. 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 Had one hemodialysis on 09/02/2018. 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 Patient may have had some kind of CKD as PTH 136, renal ultrasound positive for chronic medical disease. 09/06/2018:Sodium 143, potassium 3.9, bicarb 23, creatinine 3.12, AST 58, ALT 101, CK 1448 magnesium 1.4. 09/04/2018: Sodium 142.2, potassium 4.0, bicarb 22, BUN 41, creatinine 5.5, CK 6641. AST 138, ALT 145, albumin 3.2. Ca 8.4 09/03/2018: Sodium 138.3, potassium 4.1, bicarb 21, BUN 44, creatinine 6.2. AST 223, AST 160, alk phos 40, CK 15,790 Th1 36.8. 09/02/2018. Sodium renal ultrasound bicarb 16, creatinine 8.11, 7.5, albumin 2.8. AST 320, ALT 172, [place] [address] [place] [address]. 09/01/2018: Sodium 133.5, bicarb 18, creatinine 7.53 up from 4.09 on admission, corrected calcium 8.3 , [place] [address] down from 535661 Monitor volume status, electrolytes and replace as needed. Was a started on prerenal diet. Discharged home as per nephrology recommendation. Nephrology follow-up appointment was set up. (2) Rhabdomyolysis Due to intense workout session at work. 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 Was a started on aggressive volume resuscitation guided by volume status and vitals. CK 836 on the day of discharge. 09/06/2018: Sodium 143, potassium 3.9, bicarb 23, creatinine 3.12, AST 58, ALT 101, CK 1448 magnesium 1.4. 09/04/2018: Sodium 142.2, potassium 4.0, bicarb 22, BUN 41, creatinine 5.5, CK 6641. AST 138, ALT 145, albumin 3.2. Ca 8.4 (3) Hypocalcemia Resolved. Likely due to ANGEL and liver injury due to rhabdomyolysis. 09/06/2018:Sodium 143, potassium 3.9, bicarb 23, creatinine 3.12, AST 58, ALT 101, CK 1448 magnesium 1.4. 09/04/2018. Sodium 142.2, potassium 4.0, bicarb 22, BUN 41, creatinine 5.5, CK 6641. AST 138, ALT 145, albumin 3.2. Ca 8.4 Continued on daily potassium replacement. Daily CMP. Was discharged on potassium supplements to follow-up with PCP and nephrology. (4) Metabolic acidosis Resolved. Most likely due to ANGEL caused by rhabdomyolysis. 09/06/2018: Sodium 143, potassium 3.9, bicarb 23, creatinine 3.12, AST 58, ALT 101, CK 1448 magnesium 1.4. 09/04/2009: Sodium 142.2, potassium 4.0, bicarb 22, BUN 41, creatinine 5.5, CK 6641. 09/03/2018: bicarb 21, BUN 44, creatinine 6.2. AST 223, AST 160, alk phos 40, CK 15,790 Th1 36.8. 09/02/2018: bicarb 16, creatinine 8.11, Ca 7.5, albumin 2.8. AST 320, [place] 172, [place] [address] 09/01/2018: bicarb 18,[place] [address] down from [id number]. (5) Elevated liver enzymes Resolved. LFTs WNL day of discharge. Likely due to rhabdomyolysis patient denies any history of alcohol intake, history of alcoholic hepatitis. Hepatitis panel negative. 09/06/2018:AST 58, ALT 101, CK 1448 magnesium 1.4. 09/04/2018. AST 138, ALT 145, albumin 3.2. Ca 8.4 09/03/2018: AST 223, AST 160, alk phos 40, CK 15,790 Th1 36.8. 09/02/2018: AST 320, [place] [address] 09/01/2018: AST 432 ALT 176 08/30/2018. Abdominal ultrasound. Accentuation of the portal triads throughout the liver parenchyma, raising the possibility of acute hepatitis. However the liver does not appear significantly enlarged. LFTs were monitored daily. Nephrology was consulted no recommendations. Follow-up with PCP upon discharge. (6) Hypomagnesemia Replaced daily. Magnesium level daily. Was discharged on magnesium p.o. Follow-up with PCP and nephrology. (7) Hypertension Optimized. SBP 1 12-1 22 on the day of discharge. Started on amlodipine and Lasix. Dosages adjusted. Discharged on amlodipine and Lasix. Follow-up with nephrology and PCP. Physical Exam Vital Signs: Temp Pulse Resp BP Pulse Ox 98.4 F 63 20 158/78 H 100 09/07/18 15:18 09/07/18 15:18 09/07/18 15:18 09/07/18 15:18 09/07/18 15:18 Results Laboratory Results: 09/07/18 05:18 09/07/18 05:18 08/30/18 08/30/18 08/30/18 16:18 18:30 18:30 Creatine Kinase 98645 H 423900 H CK-MB (CK-2) 24.40 H Troponin I 0.048 08/31/18 08/31/18 08/31/18 01:03 01:03 07:05 Creatine Kinase 89209 H 94784 H CK-MB (CK-2) 20.40 H Troponin I 0.036 08/31/18 09/01/18 09/02/18 07:05 04:21 05:12 Creatine Kinase 58049 H 02217 H CK-MB (CK-2) 16.70 H Troponin I 0.026 09/03/18 09/04/18 09/05/18 05:22 04:51 04:51 Creatine Kinase 81710 H 6641 H 2970 H CK-MB (CK-2) Troponin I 09/06/18 09/07/18 05:00 05:18 Creatine Kinase 1448 H 836 H CK-MB (CK-2) Troponin I Impressions: Abdomen Ultrasound 08/30/18 00:00 IMPRESSION: Accentuation the portal triads throughout the liver parenchyma, raising the possibility of acute hepatitis. However, the liver does not appear significantly enlarged. Correlate. Echogenic right kidney, raising the possibility of medical renal disease. copyright 2011 [employer]- All Rights Reserved Qualifiers - * PATIENT BEING DISCHARGED WITH ANY OF THE FOLLOWING DIAGNOSIS: No Acute Heart Failure - Is this a Heart Failure Patient?: No
== END 2018-09-07 15:46 | disposition home or self-care (01) | DRG 683 ==
LOC: ER 13:26 → OBSVTOIN 18:17 → EH 18:17 → 4S 20:57
PROVIDERS: ADMIT Internal Medicine; ATTEND Internal Medicine
PROC: 06HM33Z Insertion of Infusion Device into Right Femoral Vein, Percutaneous Approach (ICD-10-PCS; principal; 2018-09-02)
PROC: 5A1D70Z Performance of Urinary Filtration, Intermittent, Less than 6 Hours Per Day (ICD-10-PCS; 2018-09-02)
DX: N17.9 Acute kidney failure, unspecified (principal); M62.82 Rhabdomyolysis; E87.1 Hypo-osmolality and hyponatremia; E87.2 Acidosis; E86.0 Dehydration; R94.5 Abnormal results of liver function studies; E83.51 Hypocalcemia; R11.2 Nausea with vomiting, unspecified; D64.9 Anemia, unspecified; E83.42 Hypomagnesemia; I10 Essential (primary) hypertension
CPT/HCPCS: 36415; 76700; 80053; 80061; 80074; 81001; 82306; 82550; 82553; 83036; 83735; 83970; 84100; 84443; 84484; 85025; 93005; 93010; 96361; 96374; 96375; 99285; J1650; J1885; J2405; J3475; J3490; J7030; J7120